=== PATIENT | female | born 1990 | race Caucasian/White ===

== ENCOUNTER 2025-06-08 14:43 | Inpatient (IN) | payer BC ==
[~2025-06-08] VITALS: Ht 167.6 cm; Wt 119.0 kg
[~2025-06-08 14:43] MED LIST: PHEN-786 PO; ZOF4T PO
[2025-06-08 15:24] LABS: MEAN PLATELET VOLUME 7.3 FL (7.4-10.4); RED CELL DISTRIBUTION WIDTH 13.7 % (11.5-14.5)
[2025-06-08 15:38] LABS: CREATININE 1.05 MG/DL (0.40-0.90); TOTAL CARBON DIOXIDE 20.5 MMOL/L (24-32); eCRCL 71 ML/MIN; eGFR 60 ML/MIN
[2025-06-08 16:01] LABS: ETHANOL < 10 MG/DL (<10)
[2025-06-08] MEDS: normal saline 1000ML IV soln IVB ONE (17:02)
[2025-06-08] MEDS: diazepam inj 5 MG/ML inj. IV ONE ×2 (17:15→20:09)
--- NOTE | 2025-06-08 17:19 | Physician Documentation ---
History of Present Illness ~ General Chief Complaint: Multiple Medical Complaints Stated Complaint: WEAKNESS Time Seen by MD: 16:45 OK to notify your PCP?: Yes Primary Medical Doctor: LUCY Mode of Arrival: Ambulatory History of Present Illness Initial Comments This is a 35-year-old female with a history of chronic back pain and alcohol use disorder, sober since April 20 of this year. She presented to the emergency department today with weakness and shaking of her legs with attempts to stand or to initiate steps. She was also noting severe hand pain and weakness of the hands. She notes paresthesia in the feet, worse to the 5th toe of the left foot. Notes "my tongue is numb." She had begun to experience pain in the hands when touching anything, and for this reason, her PCP initiated gabapentin 100 mg po TID on 06/06/25. Last dose this morning. Since starting the medication, her mom has noted that she developed this marked weakness and shaking of the legs. Hx of nerve issues in the back and numbness in the feet with injections to L4, L5, and S1 discs due to bulging. Last series of injections reportedly over a year ago. She does also note stomach pain/pressure with nausea and a recent bout of severe constipation that has since resolved with stool softeners. She denies saddle anesthesia or urinary incontinence other than some issues with getting to the bathroom in time due to mobility issues. Patient admits to significant anxiety surrounding her current condition and fear of falling. Current medications are zanaflex, prilosec, propranolol, ondansetron, KCL, topiramate, buspirone, fluoxetine, trazodone, celebrex. No recent falls or injuries. No SOB, chest pain, fevers, chills, rash, dysuria. Her main concern today surrounds her weakness, burning pain in her hands, and difficulty initiating steps. One other issue is recent electrolyte imbalances including sodium of 125, potassium of 2.6, Chloride of 51, C02 22. These were addressed by her PCP and she is intaking a high salt diet and is now on supplemental potassium. Labs pursued today show improvement in her electrolytes but she is found to have persisting evidence of mild BEULAH which was also noted within the last week by her PCP. Medication Reconciliation Allergies: Coded Allergies: Sulfa (Sulfonamide Antibiotics) (Verified Allergy, Unknown, 8/14/25) Scheduled Buspirone HCl (Buspirone HCl), 1 TAB PO TID, (Reported) Fluoxetine Hcl (Fluoxetine Hcl), 40 MG PO DAILY, (Reported) Gabapentin (Gabapentin), 1 CAP PO TID, (Reported) Omeprazole (Prilosec), 1 CAP PO BID, (Reported) Ondansetron ODT* (Zofran ODT*), 4 MG PO Q6H Phenazopyridine Hcl (Pyridium tablet), 200 MG PO TID Potassium Chloride (Potassium Chloride), 1 TAB PO BID, (Reported) Propranolol Hcl* (Inderal*), 1 TAB PO BID, (Reported) Tizanidine Hcl (Zanaflex), 1 TAB PO BID, (Reported) Topiramate (Topiramate), 3 TAB PO HS, (Reported) Trazodone HCl (Trazodone HCl), 100 MG PO HS, (Reported) Past Medical History Past Surgical History: tonsillectomy, other Alcohol Use: None Drug Use: none Lives with: Family Lives In: Home Occupation: student Review of Systems ROS As stated above in the HPI, otherwise all systems are reviewed and negative. Physical Exam Physical Exam Vital Signs: Temperature: 96.9, Source: Temporal, Heart Rate: 87, Respiratory Rate: 20, BP: 143/95, Pulse Oximetry: 95, Weight: 100.000 Physical Exam General: Alert, no apparent distress. HEENT: PERRL, EOMI, no injection, moist mucous membranes. Neck: Full range of motion. Back: TTP lower back without crepitus or other abnormalities to palpation. Respiratory: Lungs clear, no respiratory distress. Chest: No accessory muscle use. Cardiovascular: Regular rate and rhythm, no murmurs. Gastrointestinal: Soft, mild generalized TTP. Bowels sounds present. Extremities: Normal range of motion, no deformity. Neurologic: Oriented x4. Weak jim patellar reflexes.Unable to elicit upper extremity reflexes.Weak hand grasps jim. Speech is a little slow and slightly slurred. Normal babinski jim with toes downgoing. Somewhat weak with plantar and dorsiflexion. Psychiatric: Normal mood and affect. Skin: Normal color, warm and dry. Mild edema to fingers and toes, trace to 1+ Procedures Procedures Lumbar puncture: Status post informed written consent patient was sterilely cleaned and draped. Using lumbar puncture kit multiple attempts were attempted an upright position but failed. Procedure was aborted and patient was given some time to rest and then morphine was given prior to additional attempts with a new tray and using sterile technique we are able to obtain CSF which was clear and colorless. Pressures were not taken. CSF sent for analysis. Patient tolerated procedure well without complication. Total time of procedure 20 minutes. Patient's needle with stylet inserted was removed after CSF was obtained. Bandage applied and patient put in recumbent position. Progress Progress Note 1802: End of shift transition of care from myself to [facility]. Notified him that [place] neurologist has already seen patient virtually and will be calling back with recommendations. 1807: Return phone call from neurologist who recommends MRI with and without contrast of entire spine. If these results are normal, he would then recommend an LP. He's happy to again consult on phone if needed. 7:24 a.m. discussed the case with the hospitalist team regarding admission. Results/Orders Reviewed/noted all lab results: Yes Results/Orders Orders - KIN STRAUSS MD Mri C Spine (06/08/25 22:00) Mri Lumbar Spine (06/08/25 23:30) Mri Head (06/08/25 21:15) Page Hospitalist (06/09/25 06:08) Fill Out Med Reconciliation (06/09/25 06:08) Page Hospitalist (06/09/25 06:14) Fill Out Med Reconciliation (06/09/25 06:14) Completed Orders - KIN STRAUSS MD Mri C Spine (06/08/25 22:00) Mri Lumbar Spine (06/08/25 23:30) Mri Head (06/08/25 21:15) Diazepam Inj (Valium Inj) (06/08/25 20:00) Lorazepam Inj (Ativan Inj) (06/08/25 22:05) Gadoterate Meglum 7.5mmol/15ml (Dotarem (06/09/25 00:53) Lidocaine 1% 30ml Vial (Xylocaine 1% Via (06/09/25 01:03) Lidocaine 1% W/Preservative (Lidocaine 1 (06/09/25 01:10) Morphine 4mg/Ml Inj. (Morphine Inj.) (06/09/25 03:45) Ondansetron Inj. (Zofran 4mg/2ml Vial) (06/09/25 03:45) Csf Cell Ct (Last Tube) (06/09/25 05:03) Csf Glu (06/09/25 05:03) Csf Tp (06/09/25 05:03) Cult Csf + Gram Stain (06/09/25 05:03) Vital Signs 06/09/25 06/09/25 06/09/25 06/09/25 06:31 07:11 07:41 08:10 Pulse 89 89 80 Resp 16 15 15 14 B/P (MAP) 132/70 (90) 132/74 (93) 136/92 (107) Pulse Ox 98 96 96 O2 Flow Rate 0 0 06/09/25 06/09/25 09:17 11:45 Pulse 79 91 Resp 14 18 B/P (MAP) 142/89 (106) 133/89 (104) Pulse Ox 96 100 O2 Flow Rate 0 0 Laboratory Tests Test 06/08/25 07:32 06/08/25 15:17 06/08/25 17:45 06/09/25 05:00 Immunoglobulin A 280 White Blood Count 5.1 Red Blood Count 4.63 Hemoglobin 13.8 Hematocrit 41.0 Mean Corpuscular Volume 88.5 Mean Corpuscular Hemoglobin 29.7 Mean Corpuscular Hemoglobin Concent 33.6 Red Cell Distribution Width 13.7 Platelet Count 344 Mean Platelet Volume 7.3 L Neutrophils (%) (Auto) 69.5 Lymphocytes (%) (Auto) 25.0 Monocytes (%) (Auto) 2.7 Eosinophils (%) (Auto) 1.4 Basophils (%) (Auto) 1.4 H Neutrophils # (Auto) 3.5 Lymphocytes # (Auto) 1.3 Monocytes # (Auto) 0.1 Eosinophils # (Auto) 0.1 Basophils # (Auto) 0.1 CBC Comment Sodium Level 137 Potassium Level 3.4 L Chloride Level 104 Carbon Dioxide Level 20.5 L Anion Gap 13 Blood Urea Nitrogen 3 L Creatinine 1.05 H Estimated GFR/1.73 m2 60 BUN/Creatinine Ratio 2.9 L Glucose Level 113 H Calcium Level 9.1 Total Bilirubin 0.3 Aspartate Amino Transf (AST/SGOT) 27 Alanine Aminotransferase (ALT/SGPT) 37 Alkaline Phosphatase 103 Total Protein 7.1 Albumin 2.9 L Globulin 4.2 Albumin/Globulin Ratio 0.7 L Lipase 174 H Thyroid Stimulating Hormone (TSH) 3.59 Chemistry Comments Ethyl Alcohol Level < 10 Vitamin B12 Level 442 CSF Tubes Submitted 4 CSF Tube Number 4 CSF Volume 6 CSF Appearance Clear CSF Supernatant Color Colorless CSF WBC 0 CSF RBC 0 CSF Glucose 57 CSF Total Protein 125 H Test 06/09/25 05:07 06/09/25 07:20 06/09/25 08:05 Pathology Specimen Done Urine Specimen Description Cln catch midstream Urine Color Yellow Urine Clarity Clear Urine pH 5.5 Urine Specific [place] 1.020 Urine Protein Negative Urine Glucose (UA) Negative Urine Ketones Negative Urine Occult Blood Negative Urine Nitrite Negative Urine Bilirubin Negative Urine Urobilinogen 0.2 Urine Leukocyte Esterase Negative Urine Culture Indicated Not ind Volume Urine Centrifuged 10 ml Urine HCG, Qualitative Negative Urine Comment Urine Opiates Screen Positive Urine Methadone Screen Negative Urine Fentanyl Screen Negative Urine Barbiturates Screen Negative Urine Phencyclidine Screen Negative Urine Amphetamines Screen Negative Urine Benzodiazepines Screen Positive Urine Cocaine Screen Negative Urine Cannabinoids Screen Negative Drug Screen Comment Erythrocyte Sedimentation Rate 32 H Sodium Level 138 Potassium Level 3.1 L Chloride Level 106 Carbon Dioxide Level 21.7 L Anion Gap 10 Blood Urea Nitrogen 5 L Creatinine 0.69 Estimated GFR/1.73 m2 > 90 BUN/Creatinine Ratio 7.2 L Glucose Level 94 Calcium Level 8.4 L Ammonia < 10 L Albumin 2.3 L Chemistry Comments Microbiology Date/Time Source Procedure Growth Status 06/09/25 05:00 Csf CSF Culture - Final Complete Re-Evaluation Re-Evaluation : Re-Evaluation: Improved Progress Patient will need admission for possible IgG plasmapheresis additional workup for Guillain-[place]. EKG/XRAY/CT/US/VASC/MRI MRI : Impression Exam: MRI HEAD EXAM: MR MRI HEAD HISTORY: weakness, lbp TECHNIQUE: Multiplanar and multisequence MR imaging of the head was performed. 15 mL Clariscan injected. This was done both before and after the administration of gadolinium contrast. COMPARISON: None FINDINGS: The ventricles and subarachnoid spaces are normal in size and configuration. B rain parenchyma is normal in signal. There is no midline shift or mass effect. There is no area of abnormal contrast enhancement. The vascular flow-voids are unremarkable. Diffusion weighted imaging is not indicative of acute or recent infarct. Mild bilateral mastoid air cell effusion. IMPRESSION: No Acute or recent infarct. No enhancing intracranial lesion. Exam: MRI C SPINE EXAM: MR MRI C SPINE HISTORY: weakness, lbp COMPARISON: None TECHNIQUE: MRI of the cervical spine was performed utilizing multiple appropriate imaging planes and pulse sequences without and with intravenous contrast. 15 mL Clariscan was injected. FINDINGS: CRANIOCERVICAL JUNCTION: The atlanto-dens interval is within normal limits. There is no evidence for significant cerebellar tonsillar ectopia. BONES: Vertebral body heights are preserved. No acute compression deformities are present. No discrete marrow infiltrative lesion is seen. SPINAL CORD: The spinal cord demonstrates normal signal and morphology throughout its course. No cord edema is present. PARASPINAL SOFT TISSUES: Unremarkable. INTERVERTEBRAL DISCS: C2-C3: No disc herniation, central canal stenosis, or neuroforaminal stenosis. C3-C4: Small posterior disc bulge no significant central canal stenosis or neuroforaminal stenosis. C4-C5: Small posterior disc bulge. No significant central canal stenosis or neuroforaminal stenosis. C5-C6: Diffuse disc bulge, uncovertebral and facet hypertrophy. Mild right neural foraminal stenosis. C6-C7: No disc herniation, central canal stenosis, or neuroforaminal stenosis. C7-T1: No disc herniation, central canal stenosis, or neuroforaminal stenosis. IMPRESSION: Minor cervical spondylosis greatest at C5-C6 resulting in mild right neural foraminal stenosis. Exam: MRI THORACIC SPINE Addendum: 1 ADDENDUM # 1 Addendum to the technique: MRI imaging of the thoracic spine was performed with and without gadolinium contrast. ORIGINAL REPORT EXAM: MR MRI THORACIC SPINE CLINICAL HISTORY: Weakness COMPARISON: None TECHNIQUE: MRI imaging of the thoracic spine was performed on a MR imaging system without intravenous contrast. FINDINGS: Normal alignment of the thoracic spine. Vertebral body heights are maintained. No marrow replacing lesion is identified. No acute osseous abnormality. There is multilevel inferior inferior plate Schmorl's nodes in the mid to lower thoracic spine. There is mild disc desiccation at T5-T6 and T6-T7. There is a small right paracentral disc protrusion at T5-T6. Small posterior disc protrusions at T10-T11 and T11-T12 which effaces the thecal sac at T11-T12 . No high-grade neural foraminal or spinal stenosis. No enhancing lesion. There is dependent atelectasis in the visualized lungs. Posterior paraspinal soft tissues are unremarkable. IMPRESSION: No acute osseous abnormality or enhancing lesion. Mild multilevel thoracic spondylosis with small posterior disc protrusions at T10-T11 and T11-T12. The disc protrusion at T11-T12 effaces the ventral thecal sac. No high-grade neural foraminal or spinal stenosis. Exam: MRI LUMBAR SPINE EXAM: MR MRI LUMBAR SPINE CLINICAL HISTORY: weakness, lbp COMPARISON: None TECHNIQUE: MRI imaging of the lumbar was performed on a MRI imaging system with and without intravenous contrast. FINDINGS: 5 [id number] lumbar type vertebral bodies. Vertebral body heights are maintained. Minimal retrolisthesis at L5-S1, otherwise normal alignment. The conus medullaris is normal in appearance terminating at the level of L2. No marrow replacing or enhancing lesion is identified. Mild degenerative change of the lower lumbar spine with disc desiccation at L4- L5 and L5-S1. At the T12-L1 level, there is no significant central spinal canal or neurofora reyes stenosis. At the L1-L2 level, there is no significant central spinal canal or neuroforaminal stenosis. At the L2-L3 level, there is no significant central spinal canal or neuroforaminal stenosis. There is mild facet hypertrophy. At the L3-L4 level, there is no significant central spinal canal or neuroforaminal stenosis. Mild facet hypertrophy At the L4-L5 level, there is no significant central spinal canal or neuroforaminal stenosis. There is mild facet hypertrophy and a small diffuse disc bulge. At the L5-S1 level, there is a diffuse disc bulge and mild facet hypertrophy resulting in mild bilateral neural foraminal stenosis and no significant spinal stenosis The paraspinal soft tissues are unremarkable. No acute abnormality in the visualized retroperitoneum. IMPRESSION: No acute osseous abnormality. No enhancing lesion. Minor lumbar spondylosis greatest at L5-S1 where there is mild degenerative bilateral neural foraminal stenosis. No significant neural foraminal stenosis. Medical Decision Making Additional info obtained from: old records Differential Diagnosis Differentials broad and could include nutritional deficiencies due to alcohol use disorder (B1, B12, thiamine), nerve compression due to lumbar disc disease, toxic/metabolic/inflammatory neuropathy, Guillain-[place]' syndrome, CIDP, transverse myelitis, brainstem/cranial nerve stroke, metabolic disturbances, hypothyroidism, rare hypersensitivity to gabapentin. Dr. Strauss assuming care of patient: Spoke with tele neurologist who recommends workup for Nancy [place]. MRIs ordered and lumbar puncture performed. Isolated elevated total protein in CSF consistent with diagnosis of Nancy [place] Departure Disposition: ADMITTED INPATIENT Admitted to Inpatient Unit: yes, to hospitalist Admission Level of Care: PCU with Tele Impression: Primary Impression: Guillain [place] syndrome Condition: Critical Referrals: NO PRIMARY CARE PROVIDER (PCP) Education Educated: Patient Critical Care Note Total Time (mins): 45 Critical Care Note The very real possibility of a deterioration of this patient's condition required the highest level of my preparedness for sudden, emergent intervention. I provided critical care services, which included medication orders, frequent reevaluations of the patient's condition and response to treatment, ordering and reviewing test results, and discussing the case with various consultants. Excludes time spent performing separately billable procedures. The critical care time associated with the care of the patient was 45 minutes not counting procedures Signature Scribe Signature: x Attestation: The note accurately reflects work and decisions made by me.Kin Strauss MD 06/13/25 01:56 The note accurately reflects work and decisions made by me.Mery Dave NP 06/08/25 17:07 MERY CAMPUZANO NP Jun 08, 2025 17:19 KIN STRAUSS MD Jun 09, 2025 05:11 JULI RAMOS MD Jun 09, 2025 07:25
[2025-06-08] MEDS: thiamine 100mg/ml 2ml inj. IV ONE (17:46)
--- NOTE | 2025-06-08 18:06 | [facility] CONSULT REPORT ---
[facility] Procedure Note [facility] Procedure Note Consult [facility] Note # Demographics Consult Type: General Neurology Patient Location: Emergency Room First Name: SHOSHANA Last Name: ANGELLA Date of : 1990 Age: 35 Gender: Female Facility: [facility] Time of Initial Page (): 06/08/2025 17:30 First Contact with Site (): 06/08/2025 17:31 # HPI Chief Complaint: - weakness (generalized) History: 35-year-old female with a history of low back pain and alcohol use disorder (sober for over a month) who presents with multiple neurological symptoms. She initially sought primary care about a week ago for worsening low back pain with paresthesia. The patient reports a constellation of symptoms that have recently developed. These include burning pain in the hands accompanied by weak hand grasps, numbness of the tongue, and significant weakness in the legs. The leg weakness is described as severe enough that when she attempts to stand, her legs visibly shake, and she is unable to bear her weight for extended periods. She also notes chronic paresthesia in her lower extremities, which she attributes to her lumbar disc disease and reports it has worsened recently. Two days ago, she was started on gabapentin by her primary care provider, which is being considered as a potential cause of her current symptoms. The patient's speech is described as slow and slurred. She has a history of recent electrolyte abnormalities, with a potassium level of 2.6 and sodium of 125 last week, which have since been corrected. Last Known Normal: - I have collected independent history specific to time last normal or last known well. We have collaborated with the provider and at this time, we have the most current timeline with the information that is available. - one week ago Duration: - worsening # Scores Time of exam and NIHSS (): 06/08/2025 17:50 Level of Consciousness 1a: [0] = Alert; keenly responsive LOC Questions 1b: [0] = Answers both questions correctly LOC Commands 1c: [0] = Performs both tasks correctly Best Gaze 2: [0] = Normal Visual 3: [0] = No visual loss Facial Palsy 4: [0] = Normal symmetrical movements Motor Arm Left 5a: [0] = No drift Motor Arm Right 5b: [0] = No drift Motor Leg Left 6a: [1] = Drift Motor Leg Right 6b: [1] = Drift Limb Ataxia 7: [2] = Present in two limbs Sensory 8: [1] = [id number]-xe-onwttpmp sensory loss Best Language 9: [0] = No aphasia Dysarthria 10: [0] = Normal Extinction and Inattention 11: [0] = No abnormality NIHSS Total: 5 # Exam Sensory: - decreased in LLE; but feel sensation better in BUE than BLE Cerebellar: - right heel thompson ataxia - left heel thompson ataxia # ROS Additional: - complete review of systems otherwise negative # Assessment Impression: - back pain with progressive weakness in her legs and now into her arms. Paresthesia noted as well. Concerned for GBS vs. spinal cord pathology (i.e. transverse myelitis). # Plan Thrombolytic/Intervention: NOT IV Thrombolysis or IA Intervention candidate Intraarterial Exclusion: - clinically not consistent with stroke Thrombolytic/Intraarterial Exclusion: - IV thrombolytic and IA intervention considered but not recommended as this patient's symptoms are not clinically consistent with an assumed diagnosis of stroke Labs: - B12 - ua - urine drug screen - TSH - ESR - Ammonia Imaging: (urgency: routine): - Recommend MRI C/T/L spine wwo contrast Diagnostic Test: - Depending on MRI findings, may need LP-- - Would check CSF cell count x 2, protein, glucose, HSV, VZV, CMV, CSF culture, oligoclonal bands (serum + CSF), meningitis-encephalitis panel, paraneoplastic panel, cytology Therapy/Evaluation: - PT/OT evaluation Other: - If patient has any neurological deterioration please call me back immediately Disposition: admit # Demographics First Name: SHOSHANA Last Name: ANGELLA Facility: [facility] Consult Order placed for: Yes OBINNA CASTRO MD Jun 08, 2025 18:06
[2025-06-09] VITALS (7 sets, daily range): BP systolic 123–136; BP diastolic 76–90; PULSE 86–92; RESP 16–26; TEMP 97.7–98.2; O2SAT 95–100
[2025-06-09] MEDS: GADOTERATE MEGLUMINE 7.5 MMOL/15 ML VIAL IV ONE (00:53)
--- NOTE | 2025-06-09 00:53 | RADIOLOGY REPORT ---
EXAM: MR MRI HEAD HISTORY: weakness, lbp TECHNIQUE: Multiplanar and multisequence MR imaging of the head was performed. 15 mL Clariscan inject ed. This was done both before and after the administration of gadolinium contrast. COMPARISON: None FINDINGS: The ventricles and subarachnoid spaces are normal in size and configuration. Brain parenchyma is norm al in signal. There is no midline shift or mass effect. There is no area of abnormal contrast enhance ment. The vascular flow-voids are unremarkable. Diffusion weighted imaging is not indicative of acute or recent infarct. Mild bilateral mastoid air cell effusion. IMPRESSION: No Acute or recent infarct. No enhancing intracranial lesion.
--- NOTE | 2025-06-09 01:02 | RADIOLOGY REPORT ---
EXAM: MR MRI THORACIC SPINE CLINICAL HISTORY: Weakness COMPARISON: None TECHNIQUE: MRI imaging of the thoracic spine was performed on a MR imaging system without intravenous contrast. FINDINGS: Normal alignment of the thoracic spine. Vertebral body heights are maintained. No marrow replacing l esion is identified. No acute osseous abnormality. There is multilevel inferior inferior plate Schmo rl's nodes in the mid to lower thoracic spine. There is mild disc desiccation at T5-T6 and T6-T7. The re is a small right paracentral disc protrusion at T5-T6. Small posterior disc protrusions at T10-T11 and T11-T12 which effaces the thecal sac at T11-T12 . No high-grade neural foraminal or spinal steno sis. No enhancing lesion. There is dependent atelectasis in the visualized lungs. Posterior paraspina l soft tissues are unremarkable. IMPRESSION: No acute osseous abnormality or enhancing lesion. Mild multilevel thoracic spondylosis with small posterior disc protrusions at T10-T11 and T11-T12. Th e disc protrusion at T11-T12 effaces the ventral thecal sac. No high-grade neural foraminal or spinal stenosis.
[2025-06-09] MEDS ORDERED: LIDOcaine 1% 30ml preserv. free vial IJ STA (01:03)
--- NOTE | 2025-06-09 01:16 | RADIOLOGY REPORT ---
EXAM: MR MRI LUMBAR SPINE CLINICAL HISTORY: weakness, lbp COMPARISON: None TECHNIQUE: MRI imaging of the lumbar was performed on a MRI imaging system with and without intravenous contrast . FINDINGS: 5 [id number]-[id number] lumbar type vertebral bodies. Vertebral body heights are maintained. Minimal retro listhesis at L5-S1, otherwise normal alignment. The conus medullaris is normal in appearance terminat ing at the level of L2. No marrow replacing or enhancing lesion is identified. Mild degenerative change of the lower lumbar spine with disc desiccation at L4-L5 and L5-S1. At the T12-L1 level, there is no significant central spinal canal or neuroforaminal stenosis. At the L1-L2 level, there is no significant central spinal canal or neuroforaminal stenosis. At the L2-L3 level, there is no significant central spinal canal or neuroforaminal stenosis. There is mild facet hypertrophy. At the L3-L4 level, there is no significant central spinal canal or neuroforaminal stenosis. Mild fac et hypertrophy At the L4-L5 level, there is no significant central spinal canal or neuroforaminal stenosis. There is mild facet hypertrophy and a small diffuse disc bulge. At the L5-S1 level, there is a diffuse disc bulge and mild facet hypertrophy resulting in mild bilate ral neural foraminal stenosis and no significant spinal stenosis The paraspinal soft tissues are unremarkable. No acute abnormality in the visualized retroperitoneum . IMPRESSION: No acute osseous abnormality. No enhancing lesion. Minor lumbar spondylosis greatest at L5-S1 where there is mild degenerative bilateral neural foramina l stenosis. No significant neural foraminal stenosis.
[2025-06-09] MEDS: LIDOcaine 1% (10mg/ml)w/preservative inj. 20ml MDV SQ ONE (01:19)
--- NOTE | 2025-06-09 01:34 | RADIOLOGY REPORT ---
EXAM: MR MRI C SPINE HISTORY: weakness, lbp COMPARISON: None TECHNIQUE: MRI of the cervical spine was performed utilizing multiple appropriate imaging planes and pulse sequences without and with intravenous contrast. 15 mL Clariscan was injected. FINDINGS: CRANIOCERVICAL JUNCTION: The atlanto-dens interval is within normal limits. There is no evidence for significant cerebellar tonsillar ectopia. BONES: Vertebral body heights are preserved. No acute compression deformities are present. No discre te marrow infiltrative lesion is seen. SPINAL CORD: The spinal cord demonstrates normal signal and morphology throughout its course. No cord edema is present. PARASPINAL SOFT TISSUES: Unremarkable. INTERVERTEBRAL DISCS: C2-C3: No disc herniation, central canal stenosis, or neuroforaminal stenosis. C3-C4: Small posterior disc bulge no significant central canal stenosis or neuroforaminal stenosis. C4-C5: Small posterior disc bulge. No significant central canal stenosis or neuroforaminal stenosis. C5-C6: Diffuse disc bulge, uncovertebral and facet hypertrophy. Mild right neural foraminal stenosis. C6-C7: No disc herniation, central canal stenosis, or neuroforaminal stenosis. C7-T1: No disc herniation, central canal stenosis, or neuroforaminal stenosis. IMPRESSION: Minor cervical spondylosis greatest at C5-C6 resulting in mild right neural foraminal stenosis.
[2025-06-09] MEDS: ondansetron/PF 4mg/2ml inj IV ONE (04:33)
[2025-06-09] MEDS: morphine 4 MG/ML inj SYRINge IV ONE (04:34)
[2025-06-09 05:34] LABS: TOTAL PROTEIN,CSF 125 MG/DL (15-45)
[2025-06-09 05:45] LABS: APPEARANCE,CSF CLEAR; CSF RBC 0 /CU MM (0); CSF SUPERNATANT COLOR COLORLESS; CSF VOLUME 6 ML; CSF WBC CT 0 /CU MM (0-5); TUBE# COUNTED 4
[2025-06-09] MEDS ORDERED: potassium Cl 20 mEq SR tablet PO PRN (07:30)
[2025-06-09] MEDS ORDERED: ondansetron/PF 4mg/2ml inj IV PRN (07:30)
[2025-06-09] MEDS ORDERED: magnesium Cl slow-release 64mg tablet PO PRN (07:30)
[2025-06-09] MEDS ORDERED: magnesium sulf-water 4G/100mL 100 ML IV PRN (07:30)
[2025-06-09] MEDS ORDERED: mag hydrox/Alum hydrox/simeth 30ml oral suspension PO PRN (07:30)
[2025-06-09] MEDS ORDERED: magnesium sulf-water 2g/50mL 50 ML IV PRN (07:30)
[2025-06-09 07:41] LABS: URINE HCG NEGATIVE (NEG)
[2025-06-09 07:45] LABS: LEUKOCYTE ESTERASE ,URINE NEGATIVE (Neg); NITRITES, URINE NEGATIVE (Neg); OCCULT BLOOD,URINE NEGATIVE (Neg)
[2025-06-09 07:50] LABS: UA COLLECTION TYPE CLN CATCH MIDSTREAM
[2025-06-09] MEDS: K and/or MAG REPLACEMENT MC SCH (08:00)
[2025-06-09] MEDS: normal saline 1000ml 1,000 ML IV SCH (09:15)
[2025-06-09 09:52] LABS: CREATININE 0.69 MG/DL (0.40-0.90); TOTAL CARBON DIOXIDE 21.7 MMOL/L (24-32); eCRCL 108 ML/MIN; eGFR > 90 ML/MIN
[2025-06-09 10:50] LABS: URINE AMPHETAMINE SCREEN NEGATIVE (Neg); URINE BARBITUATE SCREEN NEGATIVE (Neg); URINE BENZODIAZEPINES SCREEN POSITIVE (Neg); URINE CANNABINOID SCREEN NEGATIVE (Neg); URINE COCAINE SCREEN NEGATIVE (Neg); URINE METHADONE SCREEN NEGATIVE (Neg); URINE OPIATE SCREEN POSITIVE (Neg); URINE PHENCYCLIDINE SCREEN NEGATIVE (Neg)
[2025-06-09] MEDS: potassium Cl 20 mEq SR tablet PO PRN (11:08)
[2025-06-09] MEDS ORDERED: TOPI-95 PO (13:58)
[2025-06-09] MEDS ORDERED: TIZA-205 PO (13:58)
[2025-06-09] MEDS ORDERED: FLUO40CA PO (13:58)
[2025-06-09] MEDS ORDERED: OMEP40CA21 PO (13:58)
[2025-06-09] MEDS ORDERED: POTA-366 PO (13:58)
[2025-06-09] MEDS ORDERED: TRAZ-251 PO (13:58)
[2025-06-09] MEDS ORDERED: BUSP10TA3 PO (13:58)
[2025-06-09] MEDS ORDERED: GABA-530 PO (13:58)
[2025-06-09] MEDS ORDERED: PROP10TA10 PO (13:58)
--- NOTE | 2025-06-09 13:59 | HISTORY AND PHYSICAL-Residence ---
History & Physical Providers to Resident Creating Document: NIKVERNA DANISHA ~ History of Present Illness Primary Medical Doctor: LUCY Reason for Admit\Complaint: Peripheral neuropathy, weakness History of Present Illness A 35-year-old female with past medical history of peripheral neuropathy, chronic back pain, depression, anxiety, alcohol use disorder presented to the ER with paresthesias and weakness in the extremities. Three weeks ago she had constipation associated with vomiting, 10-15 episodes a day, bile stained for which she took [id number]-zarvjah and prescribed laxatives. This caused her to have diarrhea about 10 episodes a day. The diarrhea continued after a week and she now has 3-4 episodes of loose stools per day. On 06/01/2025 she had a sodium level of 125 and a potassium level of 2.6. She was prescribed potassium pills and was asked to increase salt in her diet by her primary care provider. She started having paresthesias in her bilateral palm and feet around the same time. The paresthesias worsened to muscle weakness and were ascending. She had difficulty holding objects three days ago, but she could feed herself. Yesterday she had difficulty rolling around in her bed and she was not able to stand or walk which prompted her to come to the ER No history of fever, chest pain, palpitation, breathlessness, difficulty swallowing, slurred speech, photophobia, headache. Allergies: Coded Allergies: Sulfa (Sulfonamide Antibiotics) (Verified Allergy, Unknown, 06/08/25) Home Medications Home Medications Active Zofran ODT* (Ondansetron HCl) 4 Mg Tab.rapdis 4 Mg PO Q6H may sub tablets or phenergan 25mg every 6 hours #12 Pyridium tablet (Phenazopyridine HCl) 100 Mg Tablet 200 Mg PO TID Past Medical History Past Medical History Peripheral neuropathy Alcohol use disorder Chronic back pain Depression Anxiety Past Surgical History Surgical History Comment None Family History Family History: Patient reports no known family medical history. Past Social History Social History Comment Her maternal grandfather was diagnosed with cancer, family not sure what kind of cancer at the age of 53 Her maternal grandmother was diagnosed with type type 1 diabetes Smoking: Non-Smoker, Quit less than 1 year (Quit three weeks ago. One vape used to last 2-3 days) Alcohol Use: Sober (Sober since three weeks. Used to drink 2-3 drinks per night before that.) Drug Use: None, Marijuana (Takes 1-2 puffs every night) Lives with: Mother, Family Lives In: Home Occupation: student, other Domestic Violence: Neg ROS Constitutional: Reports: weakness Eyes: Reports: no symptoms reported ENT: Reports: no symptoms reported Respiratory: Reports: no symptoms reported Cardiovascular: Reports: no symptoms reported Gastrointestinal: Reports: nausea, diarrhea Genitourinary: Reports: no symptoms reported Female Genitalia: Reports: no reported symptoms Neurological: Reports: tingling, left sided numbness, right sided numbness, left sided weakness, right sided weakness, problems walking, unable to move lower ext, unable to move upper ext Musculoskeletal: Reports: no symptoms reported Integumentary: Reports: no symptoms reported Allergic/Immunologic: Reports: no symptoms reported Hematologic/Lymphatic: Reports: no symptoms reported Endocrine: Reports: no symptoms reported Psychiatric: Reports: depression, anxiety Exam Vitals: Vital Signs Date Time Temp Pulse Resp B/P (MAP) Pulse Ox O2 Delivery O2 Flow Rate FiO2 06/09/25 13:09 84 06/09/25 12:30 97.9 16 133/83 (100) 100 Room Air 06/09/25 11:45 0 General: General: Awake, confused, not agitated, not in acute distress, following simple commands. Eye opening -spontaneous, verbal response-confused, motor response-obeys commands. GCS - 14/15 HEENT: Conjunctive are pink, sclerae clear, no icterus, pupil is equal in both sides, reactive to light, no ear discharge, no pharyngeal erythema or an edema. Neck: Supple, no JVD, no lymphadenopathy and thyromegaly. Chest: Equal air entry on both lungs, no additional sounds no rhonchi no wheezing at the moment. Cardiovascular: S1-S2 regular sinus rhythm and, regular rate, no gallops, no rubs, no murmurs Abdomen: No visible peristalsis, Bowel sounds present on auscultation, soft, nontender, no guarding, no rigidity Extremities: Normal, no swelling, no visible deformities. Peripheral pulses felt. Central Nervous System: Sensory: Paresthesias and distal arms and legs, other sensations including fine touch, crude touch preserved and proximal arms and legs Motor: 2/5 power in bilateral distal arms and legs, 3/5 power in bilateral proximal arms and legs Deep tendon reflexes: Absent deep tendon reflexes Cranial nerves: No focal neurological deficits Higher mental function: Normal No bulbar symptoms including dyspnea or dysphagia or diplopia or dysarthria Musculoskeletal: No joint swelling, deformities, inflammations, and no scoliosis and back tenderness Diagnostic Data Last Recorded Lab Results: 06/08/25 1517 06/09/25 0805 Counseling Services Smoking & Tobacco Cessation: > 10 Minutes Advance Care Planning Advanced Care plannin - 30 Minutes (Full code) Additional Plan Assessment: A 35-year-old female with past medical history of peripheral neuropathy, chronic back pain, depression, anxiety, alcohol use disorder presented to the ER with paresthesias and weakness in the extremities. Plan: Symmetric Progressing peripheral neuropathy, ascending muscle weakness most likely due to GBS 06/09/2025: ESR 32, potassium 3.1, ammonia< 10, lipase 174, TSH 3.59 CSF: Total protein 125, WBC 0, RBC 0 Ordered serum B12 Lumbar spine MRI:No acute osseous abnormality. No enhancing lesion. Minor lumbar spondylosis greatest at L5-S1 where there is mild degenerative bilateral neural foraminal stenosis. No significant neural foraminal stenosis. Thoracic spine MRI: No acute osseous abnormality or enhancing lesion. Mild multilevel thoracic spondylosis with small posterior disc protrusions at T10-T11 and T11-T12. The disc protrusion at T11-T12 effaces the ventral thecal sac. No high-grade neural foraminal or spinal stenosis. Cervical spine MRI: Minor cervical spondylosis greatest at C5-C6 resulting in mild right neural foraminal stenosis. Neurology was consulted. Patient passed bedside swallow study Was out for bulbar symptoms including dyspnea dysphagia dysarthria. Started IVIG 0.4 mg/kg per day. Benadryl 25 mg and 500 mg Tylenol given before IVIG. Monitor for adverse reaction and monitor vitals Peripheral neuropathy most likely due to GBS or alcohol use disorder Ordered vitamin B12 levels Patient not tolerating gabapentin well Plan to start pregabalin if the symptoms worsened. Alcohol use disorder Patient not in withdrawal Continue home meds-propranolol 10 mg b.i.d. Chronic back pain Continue home meds-tizanidine 4 mg b.i.d. Anxiety and depression Continue home meds- fluoxetine 40 mg p.o., buspirone 10 mg t.i.d. trazodone 50 mg HS Code Status: Full code DVT prophylaxis: SCDs Analgesia/sedation: Morphine Line/tube: PIV GI prophylaxis: Pantoprazole Nutrition: Regular diet Physical therapy: Ordered Disposition: Continue medical management Verna Abraham PGY1, Internal Medicine. Date of Service: Jun 09, 2025 Billing Provider: YENNY ZIMMERMAN MD Date of Service: Jun 09, 2025 Billing Provider: YENNY ZIMMERMAN MD Common Visit Codes: [id number] INP/OBS CARE (HIGH) Secondary Visit Codes: [id number] CARE PLAN 30 MINUTES VERNA ABRAHAM, DANISHA Jun 09, 2025 13:59 YENNY ZIMMERMAN MD Jun 10, 2025 07:12
--- NOTE | 2025-06-09 15:20 | [facility] CONSULT REPORT ---
[facility] Procedure Note [facility] Procedure Note Consult [facility] Note # Demographics Consult Type: Follow-Up Phone Call Patient Location: Inpatient First Name: mary Last Name: tamara Date of : 1990 Age: 35 Gender: Female Facility: [facility] Time of Initial Page (): 06/09/2025 13:44 First Contact with Site (): 06/09/2025 13:45 Phone Only Consult: 35 y/o F with a PMHx of ETOH use disorder (sober x 1 month), low back pain presented with numbness in b/l feet and legs associated with a diarrheal illness last week. She was evaluated by my colleague, Dr. Mak, who noted that she has burning pain in her hands, weakened hand grasps, numbness in her tongue and significant weakness in her legs, with inability to bear weight associated with absent DTRs. She had hypnoatremia and hypokalemia last week, which has been corrected. She had an LP, which showed high protein. 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 # Plan Labs: Check IgA level F/u remainder of CSF studies Therapy/Evaluation: - PT/OT evaluation - NPO until swallow evaluation Medication: IVIG 0.4g/kg daily x 5 days DVT Prophylaxis: - enoxaprin (Lovenox) 40 mg subcutaneously daily Other: - If patient has any neurological deterioration please call me back immediately Additional Recommendations: -Maintain on telemetry to evaluate for dysautonomia -Monitor respiratory function, check MIP/MEP Q 4 hourly -Monitor sodium as pts can develop SIADH Disposition: continue admission # Logistics Attestation of consult completion: The patient is located at: [facility]. I performed this phone consultation from my offsite office Total time spent in telemedicine encounter: I spent 13 minutes in reviewing clinical data and/or imaging, obtaining history, communicating with the onsite care team, and in preparation of this report. # Demographics First Name: mary Last Name: tamara Facility: [facility] Electronically signed at 06/09/2025 15:19 ([place] Time) by Sandor Yi MD Neuro Consult Order placed for: Yes SANDOR YI MD Jun 09, 2025 15:20
[2025-06-09] MEDS: acetaminophen 1,000mg/100ml IV 100 ML IV ONE (15:28)
[2025-06-09] MEDS: IMMUNE GLOBUL G/GLY/IGA AVG 46 400 ML IV SCH (17:20)
--- NOTE | 2025-06-09 19:08 | CARDIOLOGY REPORT ---
APPROVED REPORT EXAM: Comprehensive 2D, Doppler, and color-flow Echocardiogram. Patient Location: 3010 Blood Pressure: 132/74 mmHg Heart Rate: 94 bpm Rhythm: NSR Indications Abnormal EKG Hx ETOH No referral manager No previous echo 2D Dimensions LA Diam3.8 cm IVSd 1.1 (0.7-1.1cm) LVDd 4.4 cm PWd 1.1 (0.7-1.1cm) IVSs 1.5 (0.8-1.2cm) LVDs 2.8 (2.5-4.0cm) Aortic Root(2D) 2.7 cm PWs 1.5 (0.8-1.2cm) LVOT Diameter 2.02 (1.8-2.4cm) LVEF(%) 65.4 (>50%) Ao Asc Diam.3.03 cmFS (%) 35.6 % SV 56.9 ml CO 5.4 L/min M-Mode Dimensions MV EPSS 0.2 (<0.5cm) Aortic Valve AoV Peak Oh. 147.4 cm/s AoV VTI 26.9 cm AO Peak GR. 8.7 mmHg AO Mean GR. 5 mmHg LVOT VTI 24.84 cm LVOT Peak Oh. 130.2 cm/s REHANA(VTI)/BSA 2.95 cm2/m2 REHANA (VTI) 2.95 cm2 Mitral Valve MV E Velocity 85.4 cm/s MV DECEL TIME 164 ms MV A Velocity 85.4 cm/s E/A Ratio 1.0 TDI Medial E' P. V 9.30 cm/s E/Medial E' 9.2 Tricuspid Valve TR P. Velocity 212 cm/s RAP ESTIMATE 10 mmHg TR Peak Gr. 18 mmHg RVSP 28 mmHg Pulmonary Vein S1 Velocity 75.8 cm/s D2 Velocity 48.5 cm/s PVa Zlcuxxng86.2 cm/s PVa Trmebaon30 msec LEFT VENTRICLE Normal LV size and wall thickness. Overall systolic function is normal. LVEF is 60-65%. RIGHT VENTRICLE RV appears normal in size and function. ATRIA The left atrium size is normal. AORTIC VALVE Trileaflet AV appears sclerotic without stenosis. Trace insufficiency. MITRAL VALVE The mitral valve is normal in structure. Trivial mitral regurgitation. TRICUSPID VALVE The tricuspid valve is normal in structure. Trace tricuspid regurgitation. PULMONIC VALVE The pulmonary valve is normal in structure. Trace pulmonic regurgitation. GREAT VESSELS The aortic root is normal in size. The ascending aorta is normal in size. IVC is not well visualized. PERICARDIUM There is no pericardial effusion. Other Information Study Quality: Adequate but poor subcostals Conclusion Normal LV size and wall thickness. Overall systolic function is normal. LVEF is 60-65%. RV appears normal in size and function. The left atrium size is normal. Trileaflet AV appears sclerotic without stenosis. Trace insufficiency. The mitral valve is normal in structure. Trivial mitral regurgitation. The tricuspid valve is normal in structure. Trace tricuspid regurgitation. The pulmonary valve is normal in structure. Trace pulmonic regurgitation. There is no pericardial effusion.
[2025-06-09] MEDS: propranolol 10mg tablet PO SCH (20:35)
[2025-06-10] VITALS (16 sets, daily range): BP systolic 93–128; BP diastolic 60–83; PULSE 63–83; RESP 13–20; TEMP 97.2–98.5; O2SAT 95–100
[2025-06-10 07:06] LABS: MEAN PLATELET VOLUME 7.2 FL (7.4-10.4); RED CELL DISTRIBUTION WIDTH 13.9 % (11.5-14.5)
[2025-06-10 07:18] LABS: CREATININE 0.83 MG/DL (0.40-0.90); TOTAL CARBON DIOXIDE 21.3 MMOL/L (24-32); eCRCL 89 ML/MIN; eGFR 79 ML/MIN
[2025-06-10] MEDS ORDERED: pantoprazole 40mg Tablet.DR PO SCH (07:30)
[2025-06-10] MEDS ORDERED: IMMUNE GLOBUL G/GLY/IGA AVG 46 400 ML IV SCH (08:00)
[2025-06-10] MEDS: HYDROcodone/acetaminophen 10/325mg tab PO PRN (08:05)
[2025-06-10] MEDS: acetaminophen 1,000mg/100ml IV 100 ML IV PRN (08:28)
[2025-06-10] MEDS: SODIUM CHLORIDE IV PRN (08:30)
[2025-06-10] MEDS: pantoprazole 40mg Tablet.DR PO SCH (08:31)
[2025-06-10] MEDS: HYDROcodone/acetaminophen 5mg/325mg tablet PO PRN (16:01)
--- NOTE | 2025-06-10 18:38 | PROGRESS NOTE- Residence ---
Progress Note - Resident Providers to CC Resident Creating Document: HANANE ABRAHAM, DANISHA ~ Central Line/PICC still needed: N\A Antibiotic Timeout Antibiotic Ordered?: No Subjective Patient was examined bedside. She reports worsening of peripheral neuropathy. She rates the pain as 10/10. Motor symptoms have not worsened from yesterday. She is able to eat and swallow properly. No dyspnea, no diplopia. Objective Vital Signs Date Time Temp Pulse Resp B/P (MAP) Pulse Ox O2 Delivery O2 Flow Rate FiO2 06/10/25 16:01 11 06/10/25 15:02 99 Room Air* 0 21 06/10/25 15:00 97.7 71 105/64 (78) Result Diagram: 06/10/25 0634 06/10/25 0634 General: Awake, confused, not agitated, not in acute distress, following simple commands. Eye opening -spontaneous, verbal response-confused, motor response-obeys commands. GCS - 14/15 HEENT: Conjunctive are pink, sclerae clear, no icterus, pupil is equal in both sides, reactive to light, no ear discharge, no pharyngeal erythema or an edema. Neck: Supple, no JVD, no lymphadenopathy and thyromegaly. Chest: Equal air entry on both lungs, no additional sounds no rhonchi no wheezing at the moment. Cardiovascular: S1-S2 regular sinus rhythm and, regular rate, no gallops, no rubs, no murmurs Abdomen: No visible peristalsis, Bowel sounds present on auscultation, soft, nontender, no guarding, no rigidity Extremities: Normal, no swelling, no visible deformities. Peripheral pulses felt. Central Nervous System: Sensory: Paresthesias and distal arms and legs, other sensations including fine touch, crude touch preserved and proximal arms and legs Motor: 2/5 power in bilateral distal arms and legs, 3/5 power in bilateral proximal arms and legs Deep tendon reflexes: Absent deep tendon reflexes Cranial nerves: No focal neurological deficits Higher mental function: Normal No bulbar symptoms including dyspnea or dysphagia or diplopia or dysarthria Musculoskeletal: No joint swelling, deformities, inflammations, and no scoliosis and back tenderness Assessment Assessment A 35-year-old female with past medical history of peripheral neuropathy, chronic back pain, depression, anxiety, alcohol use disorder presented to the ER with paresthesias and weakness in the extremities. 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 No enhancing lesion. Minor lumbar spondylosis greatest at L5-S1 where there is mild degenerative bilateral neural foraminal stenosis. No significant neural foraminal stenosis. Thoracic spine MRI: No acute osseous abnormality or enhancing lesion. Mild multilevel thoracic spondylosis with small posterior disc protrusions at T10-T11 and T11-T12. The disc protrusion at T11-T12 effaces the ventral thecal sac. No high-grade neural foraminal or spinal stenosis. Cervical spine MRI: Minor cervical spondylosis greatest at C5-C6 resulting in mild right neural foraminal stenosis. Neurology was consulted. Patient passed bedside swallow study Was out for bulbar symptoms including dyspnea dysphagia dysarthria. Started IVIG 0.4 mg/kg per day. Benadryl 25 mg and 500 mg Tylenol given before IVIG. Monitor for adverse reaction and monitor vitals 06/10/2025: No worsening of symptoms. Ammonia<10 Urine tox negative Patient tolerated IV IG well. No episodes of hypotension, no allergic reaction Neurology consulted Intensive spirometry to check inspiratory capacity Watch out for bulbar symptoms including dyspnea dysphagia and dysarthria ECHO: Normal LV size and wall thickness. Overall systolic function is normal. LVEF is 60-65%. RV appears normal in size and function. The left atrium size is normal. Trileaflet AV appears sclerotic without stenosis. Trace insufficiency. The mitral valve is normal in structure. Trivial mitral regurgitation. The tricuspid valve is normal in structure. Trace tricuspid regurgitation. The pulmonary valve is normal in structure. Trace pulmonic regurgitation. There is no pericardial effusion. Peripheral neuropathy most likely due to GBS or alcohol use disorder Ordered vitamin B12 levels Patient not tolerating gabapentin well 06/10/2025: Started patient on pregabalin 75 mg b.i.d. Alcohol use disorder Patient not in withdrawal Continue home meds-propranolol 10 mg b.i.d. Chronic back pain Continue home meds-tizanidine 4 mg b.i.d. Anxiety and depression Continue home meds- fluoxetine 40 mg p.o., buspirone 10 mg t.i.d. trazodone 50 mg HS Code Status: Full code DVT prophylaxis: SCDs Analgesia/sedation: Morphine Line/tube: PIV GI prophylaxis: Pantoprazole Nutrition: Regular diet Physical therapy: Ordered Disposition: Continue medical management Hanane Abraham PGY1, Internal Medicine. Date of Service: Jun 10, 2025 Billing Provider: YENNY ZIMMERMAN MD Common Visit Codes: [id number] INP/OBS CARE(HIGH) HANANE ABRAHAM, DANISHA Jun 10, 2025 18:38 YENNY ZIMMERMAN MD Jun 11, 2025 07:06
[2025-06-10] MEDS: enoxaparin 40mg/0.4ml syringe SUBCUT SCH (19:36)
[2025-06-10] MEDS ORDERED: enoxaparin 40mg/0.4ml syringe SUBCUT SCH (20:00)
[2025-06-11] VITALS (16 sets, daily range): BP systolic 94–145; BP diastolic 57–92; PULSE 69–82; RESP 14–23; TEMP 97.8–98.7; O2SAT 93–100
[2025-06-11 06:52] LABS: MEAN PLATELET VOLUME 7.3 FL (7.4-10.4); RED CELL DISTRIBUTION WIDTH 13.9 % (11.5-14.5)
[2025-06-11 07:19] LABS: EOSINOPHILS % (MANUAL) 3.0 % (0-6); LYMPHOCYTES % (MANUAL) 38.0 % (21-51); MONOCYTES % (MANUAL) 5.0 % (2-12); NEUTROPHILS % (MANUAL) 54.0 % (42-75); PLATELET ESTIMATE NORMAL
[2025-06-11 07:23] LABS: CREATININE 0.91 MG/DL (0.40-0.90); TOTAL CARBON DIOXIDE 21.3 MMOL/L (24-32); eCRCL 82 ML/MIN; eGFR 71 ML/MIN
--- NOTE | 2025-06-11 10:01 | PROGRESS NOTE- Residence ---
Progress Note - Resident Providers to CC Resident Creating Document: HANANE ABRAHAM, DANISHA ~ Central Line/PICC still needed: N\A Antibiotic Timeout Antibiotic Ordered?: No Subjective Patient was examined bedside. She reports worsening of peripheral neuropathy. She rates the pain as 10/10. Motor symptoms have not worsened from yesterday. She is able to eat and swallow properly. No dyspnea, no diplopia. Objective Vital Signs Date Time Temp Pulse Resp B/P (MAP) Pulse Ox O2 Delivery O2 Flow Rate FiO2 06/11/25 09:30 98.5 72 17 105/66 (79) 99 Room Air 06/10/25 20:00 0.0 21 Result Diagram: 06/11/2562206/11/25622 General: Awake, confused, not agitated, not in acute distress, following simple commands. Eye opening -spontaneous, verbal response-confused, motor response-obeys commands. GCS - 14/15 HEENT: Conjunctive are pink, sclerae clear, no icterus, pupil is equal in both sides, reactive to light, no ear discharge, no pharyngeal erythema or an edema. Neck: Supple, no JVD, no lymphadenopathy and thyromegaly. Chest: Equal air entry on both lungs, no additional sounds no rhonchi no wheezing at the moment. Cardiovascular: S1-S2 regular sinus rhythm and, regular rate, no gallops, no rubs, no murmurs Abdomen: No visible peristalsis, Bowel sounds present on auscultation, soft, nontender, no guarding, no rigidity Extremities: Normal, no swelling, no visible deformities. Peripheral pulses felt. Central Nervous System: Sensory: Paresthesias and distal arms and legs, other sensations including fine touch, crude touch preserved and proximal arms and legs Motor: 2/5 power in bilateral distal arms and legs, 3/5 power in bilateral proximal arms and legs Deep tendon reflexes: Absent deep tendon reflexes Cranial nerves: No focal neurological deficits Higher mental function: Normal No bulbar symptoms including dyspnea or dysphagia or diplopia or dysarthria Musculoskeletal: No joint swelling, deformities, inflammations, and no scoliosis and back tenderness Assessment Assessment A 35-year-old female with past medical history of peripheral neuropathy, chronic back pain, depression, anxiety, alcohol use disorder presented to the ER with paresthesias and weakness in the extremities. 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 No enhancing lesion. Minor lumbar spondylosis greatest at L5-S1 where there is mild degenerative bilateral neural foraminal stenosis. No significant neural foraminal stenosis. Thoracic spine MRI: No acute osseous abnormality or enhancing lesion. Mild multilevel thoracic spondylosis with small posterior disc protrusions at T10-T11 and T11-T12. The disc protrusion at T11-T12 effaces the ventral thecal sac. No high-grade neural foraminal or spinal stenosis. Cervical spine MRI: Minor cervical spondylosis greatest at C5-C6 resulting in mild right neural foraminal stenosis. Neurology was consulted. Patient passed bedside swallow study Was out for bulbar symptoms including dyspnea dysphagia dysarthria. Started IVIG 0.4 mg/kg per day. Benadryl 25 mg and 500 mg Tylenol given before IVIG. Monitor for adverse reaction and monitor vitals 06/10/2025: No worsening of symptoms. Ammonia<10 Urine tox negative Patient tolerated IV IG well. No episodes of hypotension, no allergic reaction Neurology consulted Intensive spirometry to check inspiratory capacity Watch out for bulbar symptoms including dyspnea dysphagia and dysarthria ECHO: Normal LV size and wall thickness. Overall systolic function is normal. LVEF is 60-65%. RV appears normal in size and function. The left atrium size is normal. Trileaflet AV appears sclerotic without stenosis. Trace insufficiency. The mitral valve is normal in structure. Trivial mitral regurgitation. The tricuspid valve is normal in structure. Trace tricuspid regurgitation. The pulmonary valve is normal in structure. Trace pulmonic regurgitation. There is no pericardial effusion. Peripheral neuropathy most likely due to GBS or alcohol use disorder Ordered vitamin B12 levels Patient not tolerating gabapentin well 06/10/2025: Started patient on pregabalin 75 mg b.i.d. Alcohol use disorder Patient not in withdrawal Continue home meds-propranolol 10 mg b.i.d. Chronic back pain Continue home meds-tizanidine 4 mg b.i.d. Anxiety and depression Continue home meds- fluoxetine 40 mg p.o., buspirone 10 mg t.i.d. trazodone 50 mg HS Code Status: Full code DVT prophylaxis: SCDs Analgesia/sedation: Morphine Line/tube: PIV GI prophylaxis: Pantoprazole Nutrition: Regular diet Physical therapy: Ordered Disposition: Continue medical management Hanane Abraham PGY1, Internal Medicine. Date of Service: Jun 11, 2025 Billing Provider: YENNY ZIMMERMAN MD, SHIVANI, RES Jun 11, 2025 10:01
[2025-06-11] MEDS: potassium Cl 40MEQ/1/2NS 520ml 520 ML IV PRN (11:09)
[2025-06-11] MEDS: HYDROcodone/acetaminophen 10/325mg tab PO PRN (14:39)
--- NOTE | 2025-06-11 16:35 | PROGRESS NOTE- Residence ---
Progress Note - Resident Providers to CC Resident Creating Document: CARLEY SWEENEY MD ~ Central Line/PICC still needed: N\A Robb-Non Protocol Robb Indications Met/Not Met: F/C Indications Not Met Antibiotic Timeout Antibiotic Ordered?: No Subjective Patient was examined bedside. She reports worsening of peripheral neuropathy. She rates the pain as 10/10. Motor symptoms have not worsened from yesterday. She is able to eat and swallow properly. No dyspnea, no diplopia. Objective Vital Signs Date Time Temp Pulse Resp B/P (MAP) Pulse Ox O2 Delivery O2 Flow Rate FiO2 06/11/25 15:41 15 06/11/25 15:00 97.9 76 100/65 (77) 100 Room Air 06/11/25 12:51 0 21 Result Diagram: 06/11/2562206/11/25622 General: Awake, confused, not agitated, not in acute distress, following simple commands. Eye opening -spontaneous, verbal response-confused, motor response-obeys commands. GCS - 14/15 HEENT: Conjunctive are pink, sclerae clear, no icterus, pupil is equal in both sides, reactive to light, no ear discharge, no pharyngeal erythema or an edema. Neck: Supple, no JVD, no lymphadenopathy and thyromegaly. Chest: Equal air entry on both lungs, no additional sounds no rhonchi no wheezing at the moment. Cardiovascular: S1-S2 regular sinus rhythm and, regular rate, no gallops, no rubs, no murmurs Abdomen: No visible peristalsis, Bowel sounds present on auscultation, soft, nontender, no guarding, no rigidity Extremities: Normal, no swelling, no visible deformities. Peripheral pulses felt. Central Nervous System: Sensory: Paresthesias and distal arms and legs, other sensations including fine touch, crude touch preserved and proximal arms and legs Motor: 2/5 power in bilateral distal arms and legs, 3/5 power in bilateral proximal arms and legs Deep tendon reflexes: Absent deep tendon reflexes Cranial nerves: No focal neurological deficits Higher mental function: Normal No bulbar symptoms including dyspnea or dysphagia or diplopia or dysarthria Musculoskeletal: No joint swelling, deformities, inflammations, and no scoliosis and back tenderness Assessment Assessment A 35-year-old female with past medical history of peripheral neuropathy, chronic back pain, depression, anxiety, alcohol use disorder presented to the ER with paresthesias and weakness in the extremities. 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 No enhancing lesion. Minor lumbar spondylosis greatest at L5-S1 where there is mild degenerative bilateral neural foraminal stenosis. No significant neural foraminal stenosis. Thoracic spine MRI: No acute osseous abnormality or enhancing lesion. Mild multilevel thoracic spondylosis with small posterior disc protrusions at T10-T11 and T11-T12. The disc protrusion at T11-T12 effaces the ventral thecal sac. No high-grade neural foraminal or spinal stenosis. Cervical spine MRI: Minor cervical spondylosis greatest at C5-C6 resulting in mild right neural foraminal stenosis. Neurology was consulted. Patient passed bedside swallow study Was out for bulbar symptoms including dyspnea dysphagia dysarthria. Started IVIG 0.4 mg/kg per day. Benadryl 25 mg and 500 mg Tylenol given before IVIG. Monitor for adverse reaction and monitor vitals 06/10/2025: No worsening of symptoms. Ammonia<10 Urine tox negative Patient tolerated IV IG well. No episodes of hypotension, no allergic reaction Neurology consulted Intensive spirometry to check inspiratory capacity Watch out for bulbar symptoms including dyspnea dysphagia and dysarthria ECHO: Normal LV size and wall thickness. Overall systolic function is normal. LVEF is 60-65%. RV appears normal in size and function. The left atrium size is normal. Trileaflet AV appears sclerotic without stenosis. Trace insufficiency. The mitral valve is normal in structure. Trivial mitral regurgitation. The tricuspid valve is normal in structure. Trace tricuspid regurgitation. The pulmonary valve is normal in structure. Trace pulmonic regurgitation. There is no pericardial effusion. 06/11/2025: WBC 2.5, CSF immunology still pending The patient tolerating IVIG well. No allergic symptoms. Blood pressure in the soft side with the systolic being in 100s and 110s Patient is still complaints of excruciating pain in bilateral hands, 7/10 Increase pain meds morphine and [place] Watch out for bulbar symptoms including dyspnea dysphagia and dysarthria Peripheral neuropathy most likely due to GBS or alcohol use disorder Ordered vitamin B12 levels Patient not tolerating gabapentin well 06/10/2025: Started patient on pregabalin 75 mg b.i.d. Alcohol use disorder Patient not in withdrawal Continue home meds-propranolol 10 mg b.i.d. Chronic back pain Continue home meds-tizanidine 4 mg b.i.d. Anxiety and depression Continue home meds- fluoxetine 40 mg p.o., buspirone 10 mg t.i.d. trazodone 50 mg HS Code Status: Full code DVT prophylaxis: SCDs Analgesia/sedation: Morphine/[place] Line/tube: PIV GI prophylaxis: Pantoprazole Nutrition: Regular diet Physical therapy: Suggested post acute care Disposition: Continue medical management Verna Zaragoza PGY1, Internal Medicine. Date of Service: Jun 11, 2025 Billing Provider: YENNY ZIMMERMAN MD Common Visit Codes: [id number] INP/OBS CARE(HIGH) VERNA ZARAGOZA, DANISHA Jun 11, 2025 16:35 YENNY ZIMMERMAN MD Jun 12, 2025 06:56
[2025-06-11] MEDS: polyethylene glycol 3350 17gm powd pack PO SCH (20:23)
[2025-06-11] MEDS: psyllium seed 5.8 gm packet (sugar-free) PO SCH (21:00)
[2025-06-12] VITALS (9 sets, daily range): BP systolic 94–125; BP diastolic 54–84; PULSE 65–79; RESP 13–18; TEMP 97.6–98.8; O2SAT 94–99
[2025-06-12 06:44] LABS: MEAN PLATELET VOLUME 7.5 FL (7.4-10.4); RED CELL DISTRIBUTION WIDTH 13.5 % (11.5-14.5)
[2025-06-12 06:51] LABS: CREATININE 0.88 MG/DL (0.40-0.90); TOTAL CARBON DIOXIDE 22.4 MMOL/L (24-32); eCRCL 84 ML/MIN; eGFR 74 ML/MIN
[2025-06-12 07:29] LABS: BANDS% (MANUAL) 1.0 % (0-10); LYMPHOCYTES % (MANUAL) 23.0 % (21-51); METAMYLEOCYTES% (MANUAL) 1.0 % (0-0); MONOCYTES % (MANUAL) 5.0 % (2-12); NEUTROPHILS % (MANUAL) 70.0 % (42-75); PLATELET ESTIMATE NORMAL
[2025-06-12] MEDS: magnesium hydroxide 30ml (MOM) UD suspension PO PRN (09:40)
[2025-06-12] MEDS ORDERED: magnesium sulf-water 4G/100mL 100 ML IV PRN (10:45)
[2025-06-12] MEDS ORDERED: potassium Cl 20 mEq SR tablet PO PRN ×2 (10:45)
[2025-06-12] MEDS ORDERED: potassium Cl 40MEQ/1/2NS 520ml 520 ML IV PRN (10:45)
[2025-06-12] MEDS ORDERED: magnesium sulf-water 2g/50mL 50 ML IV PRN (10:45)
[2025-06-12] MEDS: magnesium Cl slow-release 64mg tablet PO PRN (12:13)
[2025-06-12] MEDS: docusate sod 250mg capsule PO SCH (12:14)
--- NOTE | 2025-06-12 12:57 | PROGRESS NOTE- Residence ---
Progress Note - Resident Providers to CC Resident Creating Document: PEPE WRIGHT, RES ~ Antibiotic Timeout Antibiotic Ordered?: No Subjective The patient has been evaluated at the bedside. The patient reports some pain in the level of bilateral hands and feet, scaled 7/10 in intensity, better controlled with pain medication. As per patient her last bowel movement was June 06, 2025. Objective Vital Signs Date Time Temp Pulse Resp B/P (MAP) Pulse Ox O2 Delivery O2 Flow Rate FiO2 06/12/25 10:30 98.0 65 13 101/59 (73) 97 Room Air 06/11/25 12:51 0 21 Physical exam: General: Well alert, well oriented, not confused, not agitated, not in acute distress, well cooperated during the physical. HEENT: Conjunctive are pink, sclerae clear, no icterus, pupil is equal in both sides, reactive to light, no ear discharge, no pharyngeal erythema or an edema, mild rash in the left side of the neck. Neck: Supple, no JVD, no lymphadenopathy and thyromegaly. Chest: Equal air entry on both lungs, no additional sounds no rhonchi no wheezing at the moment. Cardiovascular: S1-S2 regular sinus rhythm and, regular rate, no gallops, no rubs, no murmurs Abdomen: No visible peristalsis, Bowel sounds present on auscultation, soft, nontender, no guarding, no rigidity Extremities: No obvious deformities, no pitting edema bilaterally, capillary refill intact, peripheral pulsations are intact on both sides Central Nervous System: No focal neurological deficits. Cranial nerves: I-XII normal. Sensory: Vibration sensation preserved, temperature is sensation diminished in socks and gloves pattern. Motor: Muscle tone preserved, strength 4/5 in bilateral upper and lower extremities. Deep tendon reflexes: Absent knee and ankle reflexes. Negative Babinski and Pulido's sign. Musculoskeletal: No joint swelling, deformities, inflammations, and no scoliosis and back tenderness Skin: Warm and dry. Result Diagram: 06/13/2561806/13/25618 Assessment Assessment A 35-year-old female with past medical history of peripheral neuropathy, chronic back pain, depression, anxiety, alcohol use disorder presented to the ER with paresthesias and weakness in the extremities. 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 No enhancing lesion. Minor lumbar spondylosis greatest at L5-S1 where there is mild degenerative bilateral neural foraminal stenosis. No significant neural foraminal stenosis. Thoracic spine MRI: No acute osseous abnormality or enhancing lesion. Mild multilevel thoracic spondylosis with small posterior disc protrusions at T10-T11 and T11-T12. The disc protrusion at T11-T12 effaces the ventral thecal sac. No high-grade neural foraminal or spinal stenosis. Cervical spine MRI: Minor cervical spondylosis greatest at C5-C6 resulting in mild right neural foraminal stenosis. Neurology was consulted. Patient passed bedside swallow study Was out for bulbar symptoms including dyspnea dysphagia dysarthria. Started IVIG 0.4 mg/kg per day. Benadryl 25 mg and 500 mg Tylenol given before IVIG. Monitor for adverse reaction and monitor vitals 06/10/2025: No worsening of symptoms. Ammonia<10 Urine tox negative Patient tolerated IV IG well. No episodes of hypotension, no allergic reaction Neurology consulted Intensive spirometry to check inspiratory capacity Watch out for bulbar symptoms including dyspnea dysphagia and dysarthria ECHO: Normal LV size and wall thickness. Overall systolic function is normal. LVEF is 60-65%. RV appears normal in size and function. The left atrium size is normal. Trileaflet AV appears sclerotic without stenosis. Trace insufficiency. The mitral valve is normal in structure. Trivial mitral regurgitation. The tricuspid valve is normal in structure. Trace tricuspid regurgitation. The pulmonary valve is normal in structure. Trace pulmonic regurgitation. There is no pericardial effusion. 06/11/2025: WBC 2.5. The patient tolerating IVIG well. No allergic symptoms. Blood pressure in the soft side with the systolic being in 100s and 110s Patient is still complaints of excruciating pain in bilateral hands, 05/0406/12/2025: CSF immunology still pending. The patient states pain at the level of the hands, currently 6/10 in intensity, better controlled with [place] as per patient. We discussed with the patient about rehab service, the patient states that they are going to talk with the family. Physical therapy recommends post-acute care. Continue pain control with [place] two tablets of 10 mg q.4h PRN for severe pain. IVIG to be completed tomorrow (5th dose). Peripheral neuropathy most likely due to GBS or alcohol use disorder Ordered vitamin B12 levels Patient not tolerating gabapentin well Pregabalin 75 mg b.i.d. Alcohol use disorder Patient not in withdrawal Continue home meds-propranolol 10 mg b.i.d. Chronic back pain Continue home meds-tizanidine 4 mg b.i.d. Anxiety and depression Continue home meds- fluoxetine 40 mg p.o., buspirone 10 mg t.i.d. trazodone 50 mg HS Code Status: Full code DVT prophylaxis: SCDs Analgesia/sedation: Morphine/[place] Line/tube: PIV GI prophylaxis: Pantoprazole Nutrition: Regular diet Physical therapy: Suggested post acute care Disposition: Continue medical management, 5th dose of IVIG tomorrow. Recommendation for post-acute care discussed with the family. Case management actively working for placement. Pepe Mendoza Internal Medicine Resident [facility] Addendum morbid obesity bmi 42 Date of Service: Jun 12, 2025 Billing Provider: YENNY ZIMMERMAN MD, FRANCO LUIS, RES Jun 12, 2025 12:57 YENNY ZIMMERMAN MD Jun 13, 2025 07:40
[2025-06-13] VITALS (9 sets, daily range): BP systolic 83–137; BP diastolic 51–89; PULSE 67–90; RESP 15–16; TEMP 96.9–98.8; O2SAT 94–99
[2025-06-13 06:38] LABS: MEAN PLATELET VOLUME 7.3 FL (7.4-10.4); RED CELL DISTRIBUTION WIDTH 13.8 % (11.5-14.5)
[2025-06-13 06:55] LABS: CREATININE 0.74 MG/DL (0.40-0.90); TOTAL CARBON DIOXIDE 20.4 MMOL/L (24-32); eCRCL 100 ML/MIN; eGFR 90 ML/MIN
[2025-06-13 08:14] LABS: BANDS% (MANUAL) 1.0 % (0-10); EOSINOPHILS % (MANUAL) 5.0 % (0-6); LYMPHOCYTES % (MANUAL) 23.0 % (21-51); MONOCYTES % (MANUAL) 3.0 % (2-12); NEUTROPHILS % (MANUAL) 68.0 % (42-75); PLATELET ESTIMATE NORMAL
[2025-06-13] MEDS: IMMUNE GLOBUL G/GLY/IGA AVG 46 400 ML IV ONE (13:23)
[2025-06-13 14:52] LABS: HIV ANTIBODY 1&2 RAPID NON-REACTIVE (Neg)
[2025-06-13] MEDS: bisacodyl 10mg suppository rectal RC PRN (16:04)
--- NOTE | 2025-06-13 18:30 | PROGRESS NOTE- Residence ---
Progress Note - Resident Providers to CC Resident Creating Document: HANANE ABRAHAM, DANISHA ~ Central Line/PICC still needed: N\A Robb-Non Protocol Robb Indications Met/Not Met: F/C Indications Met Antibiotic Timeout Antibiotic Ordered?: No Subjective The patient has been evaluated at the bedside. She reports that her sensory and motor symptoms are getting better. She was able to feed herself today. The paresthesia in the had a getting better and we will controlled with the indication. She rates the pain as forward and in intensity. She received as a positive today and had a bowel movement. She was admitted with the final dose of IVIG today, BP on the soft side Mother wants to take the patient home with home health care. PT has cleared her for post-acute care. Objective Vital Signs Date Time Temp Pulse Resp B/P (MAP) Pulse Ox O2 Delivery O2 Flow Rate FiO2 06/13/25 18:15 18 06/13/25 15:00 97.6 69 98/51 (67) 95 Room Air 06/11/25 12:51 0 21 Result Diagram: 06/13/2519 06/13/25618 General: Awake, confused, not agitated, not in acute distress, following simple commands. Eye opening -spontaneous, verbal response-confused, motor response-obeys commands. GCS - 14/15 HEENT: Conjunctive are pink, sclerae clear, no icterus, pupil is equal in both sides, reactive to light, no ear discharge, no pharyngeal erythema or an edema. Neck: Supple, no JVD, no lymphadenopathy and thyromegaly. Chest: Equal air entry on both lungs, no additional sounds no rhonchi no wheezing at the moment. Cardiovascular: S1-S2 regular sinus rhythm and, regular rate, no gallops, no rubs, no murmurs Abdomen: No visible peristalsis, Bowel sounds present on auscultation, soft, nontender, no guarding, no rigidity Extremities: Normal, no swelling, no visible deformities. Peripheral pulses felt. Central Nervous System: Sensory: Paresthesias and distal arms and legs, other sensations including fine touch, crude touch preserved and proximal arms and legs Motor: 3/5 power in bilateral distal arms and legs, 5/5 power in bilateral proximal arms and legs Deep tendon reflexes: Absent deep tendon reflexes Cranial nerves: No focal neurological deficits Higher mental function: Normal No bulbar symptoms including dyspnea or dysphagia or diplopia or dysarthria Musculoskeletal: No joint swelling, deformities, inflammations, and no scoliosis and back tenderness Assessment Assessment A 35-year-old female with past medical history of peripheral neuropathy, chronic back pain, depression, anxiety, alcohol use disorder presented to the ER with paresthesias and weakness in the extremities. 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 No enhancing lesion. Minor lumbar spondylosis greatest at L5-S1 where there is mild degenerative bilateral neural foraminal stenosis. No significant neural foraminal stenosis. Thoracic spine MRI: No acute osseous abnormality or enhancing lesion. Mild multilevel thoracic spondylosis with small posterior disc protrusions at T10-T11 and T11-T12. The disc protrusion at T11-T12 effaces the ventral thecal sac. No high-grade neural foraminal or spinal stenosis. Cervical spine MRI: Minor cervical spondylosis greatest at C5-C6 resulting in mild right neural foraminal stenosis. Neurology was consulted. Patient passed bedside swallow study Was out for bulbar symptoms including dyspnea dysphagia dysarthria. Started IVIG 0.4 mg/kg per day. Benadryl 25 mg and 500 mg Tylenol given before IVIG. Monitor for adverse reaction and monitor vitals 06/10/2025: No worsening of symptoms. Ammonia<10 Urine tox negative Patient tolerated IV IG well. No episodes of hypotension, no allergic reaction Neurology consulted Intensive spirometry to check inspiratory capacity Watch out for bulbar symptoms including dyspnea dysphagia and dysarthria ECHO: Normal LV size and wall thickness. Overall systolic function is normal. LVEF is 60-65%. RV appears normal in size and function. The left atrium size is normal. Trileaflet AV appears sclerotic without stenosis. Trace insufficiency. The mitral valve is normal in structure. Trivial mitral regurgitation. The tricuspid valve is normal in structure. Trace tricuspid regurgitation. The pulmonary valve is normal in structure. Trace pulmonic regurgitation. There is no pericardial effusion. 06/11/2025: WBC 2.5. The patient tolerating IVIG well. No allergic symptoms. Blood pressure in the soft side with the systolic being in 100s and 110s Patient is still complaints of excruciating pain in bilateral hands, 05/0406/12/2025: CSF immunology still pending. The patient states pain at the level of the hands, currently 6/10 in intensity, better controlled with [place] as per patient. We discussed with the patient about rehab service, the patient states that they are going to talk with the family. Physical therapy recommends post-acute care. Continue pain control with [place] two tablets of 10 mg q.4h PRN for severe pain. IVIG to be completed tomorrow (5th dose). 06/13/2025: CSF immunology still pending. Completed the last dose of IVIG. No side effects. Blood pressure is off side was systolic being in 100s Patient reports the sensory and motor symptoms getting better. Leukocytopenia Leukocyte in the Range of 2.5. Most of the due to IVIG Patient has no fever or other symptoms of infection We will continue monitoring WBC levels Peripheral neuropathy most likely due to GBS or alcohol use disorder Ordered vitamin B12 levels Patient not tolerating gabapentin well Pregabalin 75 mg b.i.d. 06/13/2025: Pregabalin increased to 150 mg b.i.d. in view of paresthesias Alcohol use disorder Patient not in withdrawal Continue home meds-propranolol 10 mg b.i.d. Constipation : The patient is on Colace 250 mg b.i.d., Dulcolax suppository 10 mg p.r.n. She received as a suppository today and had 1 bowel movement Chronic back pain Continue home meds-tizanidine 4 mg b.i.d. Anxiety and depression Continue home meds- fluoxetine 40 mg p.o., buspirone 10 mg t.i.d. trazodone 50 mg HS Code Status: Full code DVT prophylaxis: SCDs Analgesia/sedation: Morphine/[place] Line/tube: PIV GI prophylaxis: Pantoprazole Nutrition: Regular diet Physical therapy: Suggested post acute care Disposition: Continue medical management. Recommendation for post-acute care discussed with the family. Case management actively working for placement. Hanane Abraham MD Internal Medicine Resident [facility] Date of Service: Jun 13, 2025 Billing Provider: YENNY ZIMMERMAN MD Common Visit Codes: [id number] INP/OBS CARE(HIGH) HANANE ABRAHAM, RES Jun 13, 2025 18:30 YENNY ZIMMERMAN MD Jun 14, 2025 07:04
[2025-06-14] VITALS (11 sets, daily range): BP systolic 80–144; BP diastolic 36–102; PULSE 71–88; RESP 11–22; TEMP 97.6–98.6; O2SAT 96–99
[2025-06-14] MEDS: normal saline 500ml IV soln 500 ML IV ONE (07:00)
--- NOTE | 2025-06-14 12:44 | RADIOLOGY REPORT ---
AP portable chest CLINICAL INDICATION: sob FINDINGS: Heart size is normal. No infiltrates or effusions. No bony thoracic abnormalities. IMPRESSION: 1. No acute cardiopulmonary pathology
[2025-06-14 12:55] LABS: MEAN PLATELET VOLUME 8.2 FL (7.4-10.4); RED CELL DISTRIBUTION WIDTH 13.6 % (11.5-14.5)
[2025-06-14] MEDS: midodrine 5mg tablet PO ONE (12:55)
[2025-06-14 13:04] LABS: CREATININE 0.78 MG/DL (0.40-0.90); TOTAL CARBON DIOXIDE 20.7 MMOL/L (24-32); eCRCL 95 ML/MIN; eGFR 85 ML/MIN
[2025-06-14 13:12] LABS: PRO BRAIN NATRIURETIC PEPTIDE 571 PG/ML (0-125)
[2025-06-14 13:40] LABS: EOSINOPHILS % (MANUAL) 2.0 % (0-6); LYMPHOCYTES % (MANUAL) 45.0 % (21-51); MONOCYTES % (MANUAL) 5.0 % (2-12); NEUTROPHILS % (MANUAL) 48.0 % (42-75); PLATELET ESTIMATE NORMAL
--- NOTE | 2025-06-14 16:09 | PROGRESS NOTE- Residence ---
Progress Note - Resident Providers to CC Resident Creating Document: HANANE ABRAHAM, DANISHA ~ Central Line/PICC still needed: N\A Robb-Non Protocol Robb Indications Met/Not Met: F/C Indications Met Antibiotic Timeout Antibiotic Ordered?: No Subjective The patient has been evaluated at the bedside. She reports that her motor symptoms are getting better. But she still complains of paresthesias in bilateral arm was done getting better with pregabalin 150 mg b.i.d. and Steen and morphine. She also complains of increased sweating throughout the night. She received a final dose of IVIG yesterday. Her mother complaints of jerks in her arms and legs. Objective Vital Signs Date Time Temp Pulse Resp B/P (MAP) Pulse Ox O2 Delivery O2 Flow Rate FiO2 06/14/25 15:31 12 06/14/25 14:50 95/55 (68) 06/14/25 11:00 98.3 72 97 Room Air 06/11/25 12:51 0 21 Result Diagram: 06/14/25 1222 06/14/25 1222 General: Awake, confused, not agitated, not in acute distress, following simple commands. Eye opening -spontaneous, verbal response-confused, motor response-obeys commands. GCS - 14/15 HEENT: Conjunctive are pink, sclerae clear, no icterus, pupil is equal in both sides, reactive to light, no ear discharge, no pharyngeal erythema or an edema. Neck: Supple, no JVD, no lymphadenopathy and thyromegaly. Chest: Equal air entry on both lungs, no additional sounds no rhonchi no wheezing at the moment. Cardiovascular: S1-S2 regular sinus rhythm and, regular rate, no gallops, no rubs, no murmurs Abdomen: No visible peristalsis, Bowel sounds present on auscultation, soft, nontender, no guarding, no rigidity Extremities: Normal, no swelling, no visible deformities. Peripheral pulses felt. Central Nervous System: Sensory: Paresthesias and distal arms and legs, other sensations including fine touch, crude touch preserved and proximal arms and legs Motor: 3/5 power in bilateral distal arms and legs, 5/5 power in bilateral proximal arms and legs Deep tendon reflexes: Absent deep tendon reflexes Cranial nerves: No focal neurological deficits Higher mental function: Normal No bulbar symptoms including dyspnea or dysphagia or diplopia or dysarthria Musculoskeletal: No joint swelling, deformities, inflammations, and no scoliosis and back tenderness Assessment Assessment A 35-year-old female with past medical history of peripheral neuropathy, chronic back pain, depression, anxiety, alcohol use disorder presented to the ER with paresthesias and weakness in the extremities. 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 No enhancing lesion. Minor lumbar spondylosis greatest at L5-S1 where there is mild degenerative bilateral neural foraminal stenosis. No significant neural foraminal stenosis. Thoracic spine MRI: No acute osseous abnormality or enhancing lesion. Mild multilevel thoracic spondylosis with small posterior disc protrusions at T10-T11 and T11-T12. The disc protrusion at T11-T12 effaces the ventral thecal sac. No high-grade neural foraminal or spinal stenosis. Cervical spine MRI: Minor cervical spondylosis greatest at C5-C6 resulting in mild right neural foraminal stenosis. Neurology was consulted. Patient passed bedside swallow study Was out for bulbar symptoms including dyspnea dysphagia dysarthria. Started IVIG 0.4 mg/kg per day. Benadryl 25 mg and 500 mg Tylenol given before IVIG. Monitor for adverse reaction and monitor vitals 06/10/2025: No worsening of symptoms. Ammonia<10 Urine tox negative Patient tolerated IV IG well. No episodes of hypotension, no allergic reaction Neurology consulted Intensive spirometry to check inspiratory capacity Watch out for bulbar symptoms including dyspnea dysphagia and dysarthria ECHO: Normal LV size and wall thickness. Overall systolic function is normal. LVEF is 60-65%. RV appears normal in size and function. The left atrium size is normal. Trileaflet AV appears sclerotic without stenosis. Trace insufficiency. The mitral valve is normal in structure. Trivial mitral regurgitation. The tricuspid valve is normal in structure. Trace tricuspid regurgitation. The pulmonary valve is normal in structure. Trace pulmonic regurgitation. There is no pericardial effusion. 06/11/2025: WBC 2.5. The patient tolerating IVIG well. No allergic symptoms. Blood pressure in the soft side with the systolic being in 100s and 110s Patient is still complaints of excruciating pain in bilateral hands, 706/12/2025: CSF immunology still pending. The patient states pain at the level of the hands, currently 6/10 in intensity, better controlled with Steen as per patient. We discussed with the patient about rehab service, the patient states that they are going to talk with the family. Physical therapy recommends post-acute care. Continue pain control with Steen two tablets of 10 mg q.4h PRN for severe pain. IVIG to be completed tomorrow (5th dose). 06/13/2025: CSF immunology still pending. Completed the last dose of IVIG. No side effects. Blood pressure is off side was systolic being in 100s Patient reports the sensory and motor symptoms getting better. 06/14/2025: CSF immunology still pending She tested negative for HIV. Blood pressure systolic around 80s, suspecting autonomic dissociation. Started the patient on midodrine 5 mg t.i.d. and IV fluids, we will monitor the patient with the next 24 hours Neurology was consulted in view of autonomic dissociation and jerks while sleeping. They suggested to observe and that it might be hyponic jerks. Waiting procalcitonin results Leukocytopenia Leukocyte in the Range of 2.5. Most of the due to IVIG Patient has no fever or other symptoms of infection We will continue monitoring WBC levels Peripheral neuropathy most likely due to GBS or alcohol use disorder Ordered vitamin B12 levels Patient not tolerating gabapentin well Pregabalin 75 mg b.i.d. 06/13/2025: Pregabalin increased to 150 mg b.i.d. in view of paresthesias 06/14/2025: Pregabalin 150 mg b.i.d. only slightly improved the paresthesias But liver function is worsening total bilirubin 0.7 AST 68 ALT 74 ALP 270, NT proBNP 571 Albumin two, globulin 5.7 Alcohol use disorder Patient not in withdrawal Continue home meds-propranolol 10 mg b.i.d. Constipation : The patient is on Colace 250 mg b.i.d., Dulcolax suppository 10 mg p.r.n. She received as a suppository today and had 1 bowel movement Chronic back pain Continue home meds-tizanidine 4 mg b.i.d. Anxiety and depression Continue home meds- fluoxetine 40 mg p.o., buspirone 10 mg t.i.d. trazodone 50 mg HS Code Status: Full code DVT prophylaxis: SCDs Analgesia/sedation: Morphine/Steen Line/tube: PIV GI prophylaxis: Pantoprazole Nutrition: Regular diet Physical therapy: Suggested post acute care Disposition: Continue medical management. Recommendation for post-acute care discussed with the family. Case management actively working for placement. Hanane Abraham MD Internal Medicine Resident [facility] Date of Service: Jun 14, 2025 Billing Provider: YENNY ZIMMERMAN MD Common Visit Codes: [id number] INP/OBS CARE(HIGH) HANANE ABRAHAM, DANISHA Jun 14, 2025 16:09 YENNY ZIMMERMAN MD Jun 15, 2025 08:22
--- NOTE | 2025-06-14 16:18 | [facility] CONSULT REPORT ---
[facility] Procedure Note [facility] Procedure Note Consult [facility] Note # Demographics Consult Type: Follow-Up Phone Call Patient Location: Inpatient First Name: mary Last Name: atmara Date of : 1990 Age: 35 Gender: Female Facility: [facility] Time of Initial Page (): 06/14/2025 15:50 First Contact with Site (): 06/14/2025 15:50 Phone Only Consult: 35 y/o F with a PMHx of ETOH use disorder, low back pain who presented with numbness in the b/l feet and legs associated with a diarrheal illness one week prior to admission. She had an MRI of her spinal axis which was negative. 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 She completed her last dose yesterday and had a transient episode of hypotension, which responded somewhat to Midodrine and IV fluids (went from SBP 80s to 95mmHg) with no heart rate fluctuations. 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 We can continue to monitor and treat with supportive care (IVF, Midodrine or Carlos rinef). I would maintain her on telemetry and continue with respiratory monitoring. Phone Agreement: - phone consult deemed mutually sufficient for patient care # Assessment Impression: - Guillain [place] # Plan Other: - If patient has any neurological deterioration please call me back immediately # Logistics Attestation of consult completion: The patient is located at: [facility]. I performed this phone consultation from my offsite office Total time spent in telemedicine encounter: I spent 18 minutes in reviewing clinical data and/or imaging, obtaining history, communicating with the onsite care team, and in preparation of this report. # Demographics First Name: mary Last Name: tamara Facility: [facility] Electronically signed at 06/14/2025 16:18 () by Oanh Yi MD Neuro Consult Order placed for: Yes OANH YI MD Jun 14, 2025 16:18
[2025-06-15] VITALS (8 sets, daily range): BP systolic 70–133; BP diastolic 33–74; PULSE 76–85; RESP 14–24; TEMP 96.9–98.7; O2SAT 92–99
[2025-06-15 07:15] LABS: MEAN PLATELET VOLUME 8.3 FL (7.4-10.4); RED CELL DISTRIBUTION WIDTH 13.9 % (11.5-14.5)
[2025-06-15 07:34] LABS: CREATININE 0.66 MG/DL (0.40-0.90); TOTAL CARBON DIOXIDE 19.1 MMOL/L (24-32); eCRCL 112 ML/MIN; eGFR > 90 ML/MIN
[2025-06-15 07:53] LABS: BANDS% (MANUAL) 1.0 % (0-10); EOSINOPHILS % (MANUAL) 1.0 % (0-6); NEUTROPHILS % (MANUAL) 52.0 % (42-75)
[2025-06-15 07:54] LABS: LARGE PLATELETS FEW; LYMPHOCYTES % (MANUAL) 39.0 % (21-51); MONOCYTES % (MANUAL) 7.0 % (2-12); PLATELET ESTIMATE NORMAL
[2025-06-15] MEDS: midodrine 5mg tablet PO SCH (08:42)
[2025-06-15] MEDS: midodrine tablet 2.5 MG TABLET PO ONE (11:43)
[2025-06-15] MEDS ORDERED: midodrine 5mg tablet PO PRN (12:05)
--- NOTE | 2025-06-15 19:18 | PROGRESS NOTE- Residence ---
Progress Note - Resident Providers to CC Resident Creating Document: VERNA ABRAHAM, RES ~ Robb-Non Protocol Robb Indications Met/Not Met: F/C Indications Met Antibiotic Timeout Antibiotic Ordered?: No Subjective The patient has been evaluated at the bedside. She reports that her motor symptoms are getting better. But she still complains of paresthesias in bilateral arm which is getting better with pregabalin 150 mg b.i.d. and Baldwin and morphine. She received a final dose of IVIG two days ago. She is still has ahypnic jerks during her sleep which is better than yesterday. Objective Vital Signs Date Time Temp Pulse Resp B/P (MAP) Pulse Ox O2 Delivery O2 Flow Rate FiO2 06/15/25 16:02 Room Air 06/15/25 15:13 16 06/15/25 15:00 98.0 76 100/53 (69) 99 06/11/25 12:51 0 21 Result Diagram: 06/15/2561706/15/25617 General: Awake, confused, not agitated, not in acute distress, following simple commands. Eye opening -spontaneous, verbal response-confused, motor response-obeys commands. GCS - 14/15 HEENT: Conjunctive are pink, sclerae clear, no icterus, pupil is equal in both sides, reactive to light, no ear discharge, no pharyngeal erythema or an edema. Neck: Supple, no JVD, no lymphadenopathy and thyromegaly. Chest: Equal air entry on both lungs, no additional sounds no rhonchi no wheezing at the moment. Cardiovascular: S1-S2 regular sinus rhythm and, regular rate, no gallops, no rubs, no murmurs Abdomen: No visible peristalsis, Bowel sounds present on auscultation, soft, nontender, no guarding, no rigidity Extremities: Normal, no swelling, no visible deformities. Peripheral pulses felt. Central Nervous System: Sensory: Paresthesias and distal arms and legs, other sensations including fine touch, crude touch preserved and proximal arms and legs Motor: 3/5 power in bilateral distal arms and legs, 5/5 power in bilateral proximal arms and legs Deep tendon reflexes: Absent deep tendon reflexes Cranial nerves: No focal neurological deficits Higher mental function: Normal No bulbar symptoms including dyspnea or dysphagia or diplopia or dysarthria Musculoskeletal: No joint swelling, deformities, inflammations, and no scoliosis and back tenderness Assessment Assessment A 35-year-old female with past medical history of peripheral neuropathy, chronic back pain, depression, anxiety, alcohol use disorder presented to the ER with paresthesias and weakness in the extremities. 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 No enhancing lesion. Minor lumbar spondylosis greatest at L5-S1 where there is mild degenerative bilateral neural foraminal stenosis. No significant neural foraminal stenosis. Thoracic spine MRI: No acute osseous abnormality or enhancing lesion. Mild multilevel thoracic spondylosis with small posterior disc protrusions at T10-T11 and T11-T12. The disc protrusion at T11-T12 effaces the ventral thecal sac. No high-grade neural foraminal or spinal stenosis. Cervical spine MRI: Minor cervical spondylosis greatest at C5-C6 resulting in mild right neural foraminal stenosis. Neurology was consulted. Patient passed bedside swallow study Was out for bulbar symptoms including dyspnea dysphagia dysarthria. Started IVIG 0.4 mg/kg per day. Benadryl 25 mg and 500 mg Tylenol given before IVIG. Monitor for adverse reaction and monitor vitals 06/10/2025: No worsening of symptoms. Ammonia<10 Urine tox negative Patient tolerated IV IG well. No episodes of hypotension, no allergic reaction Neurology consulted Intensive spirometry to check inspiratory capacity Watch out for bulbar symptoms including dyspnea dysphagia and dysarthria ECHO: Normal LV size and wall thickness. Overall systolic function is normal. LVEF is 60-65%. RV appears normal in size and function. The left atrium size is normal. Trileaflet AV appears sclerotic without stenosis. Trace insufficiency. The mitral valve is normal in structure. Trivial mitral regurgitation. The tricuspid valve is normal in structure. Trace tricuspid regurgitation. The pulmonary valve is normal in structure. Trace pulmonic regurgitation. There is no pericardial effusion. 06/11/2025: WBC 2.5. The patient tolerating IVIG well. No allergic symptoms. Blood pressure in the soft side with the systolic being in 100s and 110s Patient is still complaints of excruciating pain in bilateral hands, 05/0406/12/2025: CSF immunology still pending. The patient states pain at the level of the hands, currently 6/10 in intensity, better controlled with Baldwin as per patient. We discussed with the patient about rehab service, the patient states that they are going to talk with the family. Physical therapy recommends post-acute care. Continue pain control with Baldwin two tablets of 10 mg q.4h PRN for severe pain. IVIG to be completed tomorrow (5th dose). 06/13/2025: CSF immunology still pending. Completed the last dose of IVIG. No side effects. Blood pressure is off side was systolic being in 100s Patient reports the sensory and motor symptoms getting better. 06/14/2025: CSF immunology still pending She tested negative for HIV. Blood pressure systolic around 80s, suspecting autonomic dissociation. Started the patient on midodrine 5 mg t.i.d. and IV fluids, we will monitor the patient with the next 24 hours Neurology was consulted in view of autonomic dissociation and jerks while sleeping. They suggested to observe and that it might be hyponic jerks. Waiting procalcitonin results 06/15/2025: CSF immunology still pending The lowest blood pressure recorded today was 70/50. She is on midodrine 5 mg TID and 5 mg q.3h. We will continue to monitor the patient over the next 24 hours Procalcitonin was 0.25, hypotension due to infection has been ruled out Leukocytopenia Leukocyte in the Range of 2.5. Most of the due to IVIG Patient has no fever or other symptoms of infection We will continue monitoring WBC levels Peripheral neuropathy most likely due to GBS or alcohol use disorder Ordered vitamin B12 levels Patient not tolerating gabapentin well Pregabalin 75 mg b.i.d. 06/13/2025: Pregabalin increased to 150 mg b.i.d. in view of paresthesias Acute hepatic injury most likely due to pregabalin 06/14/2025: Pregabalin 150 mg b.i.d. only slightly improved the paresthesias But liver function is worsening total bilirubin 0.7 AST 68 ALT 74 ALP 270, NT proBNP 571 Albumin two, globulin 5.7 06/15/2025: Hepatic enzymes around the same range yesterday We will continue to monitor lab values. Alcohol use disorder Patient not in withdrawal Continue home meds-propranolol 10 mg b.i.d. Constipation : The patient is on Colace 250 mg b.i.d., Dulcolax suppository 10 mg p.r.n. She received as a suppository today and had 1 bowel movement Chronic back pain Continue home meds-tizanidine 4 mg b.i.d. Anxiety and depression Continue home meds- fluoxetine 40 mg p.o., buspirone 10 mg t.i.d. trazodone 50 mg HS Code Status: Full code DVT prophylaxis: SCDs Analgesia/sedation: Morphine/Baldwin Line/tube: PIV GI prophylaxis: Pantoprazole Nutrition: Regular diet Physical therapy: Suggested post acute care Disposition: Continue medical management. Recommendation for post-acute care discussed with the family. Case management actively working for placement. Verna Abraham MD Internal Medicine Resident [facility] Date of Service: Jun 15, 2025 Billing Provider: YENNY ZIMMERMAN MD Common Visit Codes: [id number] INP/OBS CARE(HIGH) VERNA ABRAHAM, RES Jun 15, 2025 19:18 YENNY ZIMMERMAN MD Jun 16, 2025 06:47
[2025-06-16 02:00] VITALS: BP 116/62; PULSE 83; RESP 19; TEMP 97.1; O2SAT 90
[2025-06-16 06:00] VITALS: BP 129/66; PULSE 88; RESP 19; TEMP 97.8; O2SAT 98
[2025-06-16 06:30] VITALS: O2SAT 98
[2025-06-16 08:00] VITALS: RESP 19; O2SAT 98
[2025-06-16 11:00] VITALS: BP 128/75; PULSE 91; RESP 17; TEMP 96.8; O2SAT 98
[2025-06-16 12:41] VITALS: RESP 16
--- NOTE | 2025-06-16 17:44 | DISCHARGE SUMMARY-Residence ---
Discharge Summary Providers to Resident Creating Document: ARIADNASYDIsraelDANISHA GILLESPIE ~ Discharge Summary Admission Diagnosis: GB Syndrome Hospital Course DATE OF ADMISSION: 06/08/2025 DATE OF DISCHARGE: 06/16/2025 Discharge Diagnosis\Comment: GBS Peripheral neuropathy Chronic back pain Depression Alcohol use disorder Anxiety Operations\Procedures: None Consultants: [facility] Complications: None Condition on DC: Stable Continued Medications: Buspirone HCl (Buspirone HCl) 10 Mg Tablet 1 TAB PO TID Fluoxetine Hcl (Fluoxetine Hcl) 40 Mg Capsule 40 MG PO DAILY Omeprazole (Prilosec) 40 Mg Capsule 1 CAP PO BID Ondansetron ODT* (Zofran ODT*) 4 Mg Tab.rapdis 4 MG PO Q6H, #12 may sub tablets or phenergan 25mg every 6 hours #12 Phenazopyridine Hcl (Pyridium tablet) 100 Mg Tablet 200 MG PO TID, #12 Potassium Chloride (Potassium Chloride) 20 Meq Tablet.er 1 TAB PO BID Propranolol Hcl* (Inderal*) 10 Mg Tablet 1 TAB PO BID Tizanidine Hcl (Zanaflex) 4 Mg Tablet 1 TAB PO BID Topiramate (Topiramate) 50 Mg Tablet 3 TAB PO HS Trazodone HCl (Trazodone HCl) 50 Mg Tablet 100 MG PO HS Discharge Summary: History of present illness: A 35-year-old female with past medical history of peripheral neuropathy, chronic back pain, depression, anxiety, alcohol use disorder presented to the ER with paresthesias and weakness in the extremities. Three weeks ago she had constipation associated with vomiting, 10-15 episodes a day, bile stained for which she took [id number] and prescribed laxatives. This caused her to have diarrhea about 10 episodes a day. The diarrhea continued after a week and she now has 3-4 episodes of loose stools per day. On 06/01/2025 she had a sodium level of 125 and a potassium level of 2.6. She was prescribed potassium pills and was asked to increase salt in her diet by her primary care provider. She started having paresthesias in her bilateral palm and feet around the same time. The paresthesias worsened to muscle weakness and were ascending. She had difficulty holding objects three days ago, but she could feed herself. Yesterday she had difficulty rolling around in her bed and she was not able to stand or walk which prompted her to come to the ER No history of fever, chest pain, palpitation, breathlessness, difficulty swallowing, slurred speech, photophobia, headache. 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 Neurology was consulted. She completed 5 doses of IVIG. Her motor symptoms improved from 3/5 to 5/5 in legs and 2/5 to 4/5 in hands. She was treated with a pregabalin 150 mg b.i.d. for her paresthesias. On the 5th day she developed hypotension and hypnic jerks during sleep. Be suspected autonomic dissociation and started her on midodrine 5 mg t.i.d. and midodrine 5 mg p.r.n. to maintain her blood pressure. PT cleared her for post-acute care. She is hemodynamically stable for the transfer to [facility]. [facility] has been informed of her condition and suggested monitor blood pressure closely. Vital Signs Date Time Temp Pulse Resp B/P (MAP) Pulse Ox O2 Delivery O2 Flow Rate FiO2 06/16/25 12:41 16 06/16/25 11:00 96.8 91 128/75 (92) 98 Room Air 06/11/25 12:51 0 21 Physical exam: General: Awake, confused, not agitated, not in acute distress, following simple commands. Eye opening -spontaneous, verbal response-confused, motor response-obeys commands. GCS - 14/15 HEENT: Conjunctive are pink, sclerae clear, no icterus, pupil is equal in both sides, reactive to light, no ear discharge, no pharyngeal erythema or an edema. Neck: Supple, no JVD, no lymphadenopathy and thyromegaly. Chest: Equal air entry on both lungs, no additional sounds no rhonchi no wheezing at the moment. Cardiovascular: S1-S2 regular sinus rhythm and, regular rate, no gallops, no rubs, no murmurs Abdomen: No visible peristalsis, Bowel sounds present on auscultation, soft, nontender, no guarding, no rigidity Extremities: Normal, no swelling, no visible deformities. Peripheral pulses felt. Central Nervous System: Sensory: Paresthesias and distal arms and legs, other sensations including fine touch, crude touch preserved and proximal arms and legs Motor: 3/5 power in bilateral distal arms and legs, 5/5 power in bilateral proximal arms and legs Deep tendon reflexes: Absent deep tendon reflexes Cranial nerves: No focal neurological deficits Higher mental function: Normal No bulbar symptoms including dyspnea or dysphagia or diplopia or dysarthria Musculoskeletal: No joint swelling, deformities, inflammations, and no scoliosis and back tenderness Laboratory Tests Test 06/15/25 06:18 06/16/25 07:28 White Blood Count 2.7 X10'3 Red Blood Count 3.63 X10'6 Hemoglobin 11.0 g/dl Hematocrit 31.2 % Mean Corpuscular Volume 85.8 FL Mean Corpuscular Hemoglobin 30.4 PG Mean Corpuscular Hemoglobin Concent 35.4 g/dL Red Cell Distribution Width 13.9 % Platelet Count 221 X10'3 Mean Platelet Volume 8.3 FL Neutrophils (%) (Auto) 52.1 % Lymphocytes (%) (Auto) 39.7 % Monocytes (%) (Auto) 4.1 % Eosinophils (%) (Auto) 2.7 % Basophils (%) (Auto) 1.4 % Neutrophils # (Auto) 1.4 X10'3 Lymphocytes # (Auto) 1.1 X10'3 Monocytes # (Auto) 0.1 X10'3 Eosinophils # (Auto) 0.1 X10'3 Basophils # (Auto) 0.0 X10'3 CBC Comment Differential Total Cells Counted 100 Neutrophils % (Manual) 52.0 % Band Neutrophils % 1.0 % Lymphocytes % (Manual) 39.0 % Monocytes % (Manual) 7.0 % Eosinophils % (Manual) 1.0 % Platelet Estimate Normal Large Platelets Few Red Blood Cell Morphology Normal Basophilic Stippling Sodium Level 132 MMOL/L Potassium Level 3.6 MMOL/L 3.4 MMOL/L Chloride Level 102 MMOL/L Carbon Dioxide Level 19.1 MMOL/L Anion Gap 11 Blood Urea Nitrogen 6 MG/DL Creatinine 0.66 MG/DL Estimated GFR/1.73 m2 > 90 ML/MIN BUN/Creatinine Ratio 9.1 Glucose Level 82 MG/DL Calcium Level 8.6 MG/DL Magnesium Level 1.8 MG/DL 1.8 MG/DL Total Bilirubin 0.8 MG/DL Aspartate Amino Transf (AST/SGOT) 55 U/L Alanine Aminotransferase (ALT/SGPT) 71 U/L Alkaline Phosphatase 282 IU/L Total Protein 8.4 G/DL Albumin 2.2 G/DL Globulin 6.2 G/DL Albumin/Globulin Ratio 0.4 Chemistry Comments Discharge course: Patient discharged to post acute care facility. [facility] has been informed of her condition and suggested to monitor blood pressure closely. Advised to have good PT sessions to regain her strength Follow up with your primary care physician after discharge from [facility] Visit ER immediately in case of any acute symptoms including progression of weakness, hypotension, drowsiness, bowel and bladder incontinence. Take tablet midodrine 5 mg p.o. t.i.d. for blood pressure Midodrine 5 mg p.o. p.r.n. q.3h Take tablet pregabalin 150 mg b.i.d. for paresthesias. Monitor with liver function test. *Problems/Diagnosis: (1) Anxiety Status: Chronic (2) Peripheral neuropathy Status: Chronic (3) Depression Status: Chronic (4) Alcohol use disorder Status: Chronic (5) Chronic back pain Status: Chronic (6) Guillain Kendall syndrome Status: Acute Total Time Spent on D/C: > 30 Minutes Date of Service: Jun 16, 2025 Billing Provider: YENNY ZIMMERMAN MD Common Visit Codes: 18874-TPA/OBS DISCH DAY >30min VERNA ZARAGOZA, RES Jun 16, 2025 17:43 YENNY ZIMMERMAN MD Jun 17, 2025 08:04
[2025-06-20 11:17] LABS: AGNA-1 Negative (Negative); Anti-Ri Ab Negative (Negative); CASPR2 Antibody, Cell-based Negative (Negative); LGI1 Antibody, Cell-based IFA Negative (Negative); PCA Type-1 (Anti-Yo) Ab Negative (Negative); Purkinje Cell Cyto Ab Type 2 Negative (Negative); Purkinje Cell Cyto Ab Type Tr Negative (Negative)
[2025-06-22 06:16] LABS: CYTOMEGALOVIRUS PCR Negative (Negative)
== END 2025-06-16 16:10 | DRG 95 ==
LOC: ER 14:44 → ED HOLD 06-09 12:09 → PCU 3S 06-09 13:02
PROVIDERS: ADMIT Internal Medicine; ATTEND Internal Medicine
PROC: 05HD33Z Insertion of Infusion Device into Right Cephalic Vein, Percutaneous Approach (ICD-10-PCS; principal; 2025-06-09)
PROC: B54MZZA Ultrasonography of Right Upper Extremity Veins, Guidance (ICD-10-PCS; 2025-06-09)
DX: G61.0 Guillain-Barre syndrome (principal); N17.9 Acute kidney failure, unspecified; Z68.41 Body mass index [BMI] 40.0-44.9, adult; S36.13XA Injury of bile duct, initial encounter; F41.9 Anxiety disorder, unspecified; G62.9 Polyneuropathy, unspecified; M54.9 Dorsalgia, unspecified; G89.29 Other chronic pain; I95.9 Hypotension, unspecified; F32.A Depression, unspecified; E66.01 Morbid (severe) obesity due to excess calories; M51.24 Other intervertebral disc displacement, thoracic region; M47.814 Spondylosis without myelopathy or radiculopathy, thoracic region; D72.818 Other decreased white blood cell count; F10.10 Alcohol abuse, uncomplicated; K59.00 Constipation, unspecified; Y92.89 Other specified places as the place of occurrence of the external cause; X58.XXXA Exposure to other specified factors, initial encounter; Y93.89 Activity, other specified; Z88.2 Allergy status to sulfonamides; Z79.899 Other long term (current) drug therapy; Y99.8 Other external cause status
CPT/HCPCS: 36410; 36415; 70553; 71045; 72156; 72157; 72158; 76937; 80048; 80053; 80305; 80320; 81003; 81025; 82140; 82607; 82784; 82945; 82948; 83690; 83735; 83880; 83916; 84132; 84145; 84157; 84443; 85007; 85025; 85651; 86255; 86703; 87015; 87070; 87081; 87496; 89051; 93306; 96361; 96374; 96375; 97110; 97116; 97162; 97530; 99291; A4615; A6250; A6449; C1751; G0378; J0131; J0780; J1200; J1459; J1650; J2060; J2270; J2405; J3360; J3411; J3420; J3480; J7030; J7040